=== PATIENT | male | born 1940 | race Caucasian/White ===

== ENCOUNTER 2017-12-19 09:06 | Outpatient (RCR) | payer MEDICARE, OTHER, SELFPAY ==
[2017-12-19 10:37] LABS: International Normalized Ratio 2.5; Prothrombin Time (Protime)PT. 27.1 SECONDS (11.7-14.9)
[2017-12-19 10:42] LABS: AST(SGOT) 22 U/L (15-37); Alanine Aminotransfer ALT/SGPT 22 U/L (16-61); Albumin, Serum 3.5 g/dL (3.2-5.0); Alkaline Phosphatase 68 U/L (45-117); Bilirubin, Direct 0.19 mg/dL (0.00-0.30); Cholesterol 125 mg/dL (200); Globulin 3.5 g/dL (2.2-4.2); High Density Lipoprotein 37 mg/dL; Triglycerides 150 mg/dL; Very Low Density Lipoprotein 30 mg/dL (5-40)
== END 2017-12-19 09:30 | disposition home or self-care (01) ==
LOC: MTLAB 09:06
PROVIDERS: Internal Medicine Cardiovascular Disease; Family Provider Family Medicine; PCP Family Medicine; Visit Provider Family Medicine
DX: I48.91 Unspecified atrial fibrillation (principal); E78.5 Hyperlipidemia, unspecified; Z79.899 Other long term (current) drug therapy
CPT/HCPCS: 36415; 80061; 80076; 85610

== ENCOUNTER 2018-01-31 11:21 | Outpatient (RCR) | payer MEDICARE, OTHER, SELFPAY ==
[2018-01-31 12:50] LABS: International Normalized Ratio 2.3; Prothrombin Time (Protime)PT. 25.2 SECONDS (11.7-14.9)
== END 2018-01-31 12:00 | disposition home or self-care (01) ==
LOC: MTLAB 11:21
PROVIDERS: Family Provider Family Medicine; PCP Family Medicine; Visit Provider Family Medicine
DX: I48.91 Unspecified atrial fibrillation (principal); E78.5 Hyperlipidemia, unspecified; Z79.899 Other long term (current) drug therapy
CPT/HCPCS: 36415; 85610

== ENCOUNTER 2018-03-18 12:52 | Outpatient (RCR) | payer MEDICARE, OTHER, SELFPAY ==
[2018-03-18 14:07] LABS: International Normalized Ratio 2.5; Prothrombin Time (Protime)PT. 26.9 SECONDS (11.7-14.9)
== END 2018-03-18 14:00 ==
LOC: MTLAB 12:52
PROVIDERS: Family Provider Family Medicine; PCP Family Medicine; Visit Provider Family Medicine
DX: I48.91 Unspecified atrial fibrillation (principal)
CPT/HCPCS: 36415; 85610

== ENCOUNTER 2018-04-25 11:08 | Outpatient (RCR) | payer MEDICARE, OTHER, SELFPAY ==
[2018-04-25 12:21] LABS: International Normalized Ratio 2.6
== END 2018-04-25 13:00 | disposition home or self-care (01) ==
LOC: MTLAB 11:08
PROVIDERS: Family Provider Family Medicine; PCP Family Medicine; Visit Provider Family Medicine
DX: I48.91 Unspecified atrial fibrillation (principal)
CPT/HCPCS: 36415; 85610

== ENCOUNTER 2018-05-16 10:23 | Outpatient (RCR) | payer MEDICARE, OTHER, SELFPAY ==
[2018-05-16 12:32] LABS: International Normalized Ratio 2.8; Prothrombin Time (Protime)PT. 29.7 SECONDS (11.7-14.9)
== END 2018-05-16 12:00 | disposition home or self-care (01) ==
LOC: MTLAB 10:23
PROVIDERS: Family Provider Family Medicine; PCP Family Medicine; Visit Provider Family Medicine
DX: I48.91 Unspecified atrial fibrillation (principal)
CPT/HCPCS: 36415; 85610

== ENCOUNTER 2018-06-12 08:26 | Outpatient (RCR) | payer MEDICARE, OTHER, SELFPAY ==
[2018-06-12 10:11] LABS: International Normalized Ratio 2.2; Prothrombin Time (Protime)PT. 24.9 SECONDS (11.7-14.9)
[2018-06-12 10:27] LABS: AST(SGOT) 28 U/L (15-37); Alanine Aminotransfer ALT/SGPT 26 U/L (16-61); Albumin, Serum 3.8 g/dL (3.2-5.0); Alkaline Phosphatase 77 U/L (45-117); Bilirubin, Direct 0.29 mg/dL (0.00-0.30); Cholesterol 132 mg/dL (200); Globulin 3.9 g/dL (2.2-4.2); High Density Lipoprotein 35 mg/dL; Protein, Total 7.7 g/dL (6.4-8.2); Triglycerides 198 mg/dL; Very Low Density Lipoprotein 40 mg/dL (5-40)
== END 2018-06-12 10:00 | disposition home or self-care (01) ==
LOC: MTLAB 08:26
PROVIDERS: Internal Medicine Cardiovascular Disease; Family Provider Family Medicine; PCP Family Medicine; Referring Provider Family Medicine; Visit Provider Family Medicine
DX: I48.91 Unspecified atrial fibrillation (principal); E78.5 Hyperlipidemia, unspecified
CPT/HCPCS: 36415; 80061; 80076; 85610

== ENCOUNTER → 2018-06-14 11:11 | Outpatient (CLI) | payer MEDICARE, OTHER, SELFPAY ==
--- NOTE | 2018-06-14 11:17 | RAD_ITS ---
STUDY: X-RAY CHEST REASON FOR EXAM: Male, 78 years old. PPM TECHNIQUE: Frontal and lateral views COMPARISON: None. FINDINGS: There is a dual lead left-sided pacemaker. The lungs are expanded. Mild basilar atelectasis. Normal size heart. Normal mediastinum and [place]. Normal visualized pulmonary arteries. Normal visualized aortic arch and descending thoracic aorta. Mild degenerative changes of the thoracic spine. Normal visualized ribs, clavicles, and shoulders. There is no demonstrated abnormality of the visualized soft tissue structures of the upper abdomen. RAD/Chest PA and Lateral IMPRESSION: Mild basilar atelectasis. Electronically Signed: Giovanni José DO at 9:38 EDT Tel [phone], Service support ,
[2018-06-14 11:41] LABS: Bacteria 0 SEEN /hpf (None Seen); Mucous, Urine 0 SEEN /hpf (<or=2+); Squamous Epithelial Cells - UA 0 SEEN /hpf (0-5); White Blood Cells 0 SEEN /hpf (0-5)
[2018-06-14 12:36] LABS: Hematocrit 43.7 % (40-54); Hemoglobin 14.9 g/dl (13.0-16.5); Mean Corp Hgb Conc 34.1 g/gl (32-36); Mean Corpuscular Hgb 33.9 pg (27.0-32.0); Mean Corpuscular Volume 99.5 fL (80-94); Mean Platelet Vol. 10.7 fl (6.2-12.0); Platelet Count 125 K/mm3 (150-450); RBC Distribution Width CV 12.9 % (11.6-14.6); Red Blood Count 4.39 M/mm3 (4.6-6.2); White Blood Count 6.2 K/mm3 (4.4-11.0)
[2018-06-14 12:37] LABS: Scan Indicated on CBC? Y/N NO
[2018-06-14 12:42] LABS: Color, Urine Yellow (Yellow); Glucose, Dipstick Normal (Normal); Ketone-Dipstick 5 mg/dl (Negative); Leukocyte Esterase-Dipstick 25 /ul (Negative); Nitrite-Dipstick Negative (Negative); Occult Blood-Urine 150 /ul (Negative); Protein-Dipstick 15 mg/dl (Negative); Urine Bilirubin Dipstick Negative (Negative); Urine Clarity Clear (Clear); Urine Urobilinogen 1 mg/dl (Normal)
[2018-06-14 12:43] LABS: International Normalized Ratio 2.4; Prothrombin Time (Protime)PT. 25.9 SECONDS (11.7-14.9)
[2018-06-14 12:48] LABS: Red Blood Cells-Urine 5-10 SEEN /hpf (0-5)
[2018-06-14 13:02] LABS: Anion Gap 10 (5-15); BUN 27 mg/dL (7-18); BUN/Creat Ratio 20.9 RATIO (10-20); Calcium,Total 8.5 mg/dL (8.5-10.1); Chloride 109 mmol/L (98-107); Creatinine, Serum 1.29 mg/dL (0.70-1.30); EST Glomerular Filtration Rate 57 mL/min (>60); Est Glom Filt Rate - Afr Amer 69 mL/min (>60); Glucose 90 mg/dL (74-106); Potassium 3.9 mmol/L (3.5-5.1); Sodium Level 145 mmol/L (136-145)
== END ==
PROVIDERS: Family Provider Family Medicine; PCP Family Medicine; Referring Provider Internal Medicine Cardiovascular Disease; Visit Provider Internal Medicine Cardiovascular Disease
DX: I48.2 Chronic atrial fibrillation (principal); I25.10 Atherosclerotic heart disease of native coronary artery without angina pectoris; I44.2 Atrioventricular block, complete; I49.5 Sick sinus syndrome; I43 Cardiomyopathy in diseases classified elsewhere; Z95.0 Presence of cardiac pacemaker
CPT/HCPCS: 36415; 71046; 80048; 81001; 85027; 85610

== ENCOUNTER 2018-06-24 10:39 | Day surgery (SDC) | payer MEDICARE, OTHER, SELFPAY ==
[2018-06-21 12:25] VITALS: BMI 30.2
[2018-06-24 10:56] LABS: Prothrombin Time Fingerstick 15.2 SEC (11.9-14.4)
--- NOTE | 2018-06-24 13:39 | CL.IE_ITS ---
Patient: MAIA GILES Study Date: 06/24/2018 Performing: Luciano Roach MD : 1940 Age: 78 Gender: male PROCEDURES PERFORMED IN68-GDOSYWH REMOVAL+REPLACEMENT PACER-DUAL LEAD INDICATIONS End-of-life replacement indicator Sinoatrial node dysfunction/Sick sinus syndrome Atrial fibrillation and complete heart block PROCEDURE DETAILS The patient was brought to the Catheterization Lab in the postabsorptive nonsedated state. Informed consent was obtained prior to the procedure. Local anesthetic was given subcutaneously to the left up per chest area with Lidocaine 2%. Incision was made to the left upper chest. PPM generator was remove d. PPM generator was then interrogated by the cad programmer. Device pocket was irrigated with antibiotic . PPM generator was attached to the lead(s) and inserted into the pocket. Subcutaneous closure was co mpleted with 3-0 Vicryl. Skin closure was completed with 4-0 Vicryl. Steri-strips applied to Lt chest area. The patient tolerated the procedure well. Estimated Blood Loss: 10 ml's IMPLANTED / EX-PLANTED DEVICES IMPLANTED DEVICE(S): PPM Generator - Auto Parker: [email or web address], Model # [email or web address] MRI L111 , Serial # [id number] DEVICE PARAMETERS DEVICE PARAMETERS: Mode- VVIR Lower rate- 70 Upper rate- 120 CONCLUSIONS / RECOMMENDATIONS Device Conclusions: Successful implantation of a dual chamber pacemaker battery change and replacemen t Device Recommendations: Follow up with Primary Care Physician PROCEDURE MEDICATIONS Fentanyl 50 mcg IV Versed 1 mg IV Oxygen: 2 L/min via nasal cannula Antibiotic given in appropriate timeframe. Ancef 2 Gm IV @ 06/24/2018 12:24:54 Signed By Luciano Roach MD On 06/24/2018 13:38:36 Luciano Roach MD
== END 2018-06-24 14:55 | disposition home or self-care (01) ==
LOC: CLSP 10:40
PROVIDERS: Family Provider Family Medicine; PCP Family Medicine; Referring Provider Internal Medicine Cardiovascular Disease; Visit Provider Internal Medicine Cardiovascular Disease
DX: I49.5 Sick sinus syndrome (principal); Z00.6 Encounter for examination for normal comparison and control in clinical research program; I48.2 Chronic atrial fibrillation; I44.2 Atrioventricular block, complete; I25.10 Atherosclerotic heart disease of native coronary artery without angina pectoris; I34.1 Nonrheumatic mitral (valve) prolapse; I42.9 Cardiomyopathy, unspecified; E78.00 Pure hypercholesterolemia, unspecified; N40.0 Benign prostatic hyperplasia without lower urinary tract symptoms; E66.9 Obesity, unspecified; Z79.01 Long term (current) use of anticoagulants; Z79.899 Other long term (current) drug therapy; Z95.0 Presence of cardiac pacemaker; Z87.891 Personal history of nicotine dependence
CPT/HCPCS: 33228; 36416; 85610; 99152; 99153; J7040; J7050

== ENCOUNTER 2018-07-23 10:47 | Outpatient (RCR) | payer MEDICARE, OTHER, SELFPAY ==
[2018-07-23 12:08] LABS: International Normalized Ratio 2.1
== END 2018-07-23 11:00 | disposition home or self-care (01) ==
LOC: MTLAB 10:47
PROVIDERS: Family Provider Family Medicine; PCP Family Medicine; Referring Provider Family Medicine; Visit Provider Family Medicine
DX: I48.91 Unspecified atrial fibrillation (principal); E78.5 Hyperlipidemia, unspecified
CPT/HCPCS: 36415; 85610

== ENCOUNTER 2018-12-10 10:49 | Outpatient (RCR) | payer MEDICARE, OTHER, SELFPAY ==
[2018-06-21 12:25] VITALS: BMI 30.2
[2018-12-10 12:16] LABS: International Normalized Ratio 2.4; Prothrombin Time (Protime)PT. 26.1 SECONDS (11.7-14.9)
== END 2019-01-07 16:00 | disposition home or self-care (01) ==
LOC: MTLAB 10:49
PROVIDERS: Family Provider Family Medicine; PCP Family Medicine; Referring Provider Family Medicine; Visit Provider Family Medicine
DX: I48.91 Unspecified atrial fibrillation (principal)
CPT/HCPCS: 36415; 85610

== ENCOUNTER → 2018-12-26 | Outpatient (CLI) | payer MEDICARE, OTHER, SELFPAY ==
[2018-12-26 12:36] LABS: AST(SGOT) 23 U/L (15-37); Alanine Aminotransfer ALT/SGPT 29 U/L (16-61); Albumin, Serum 3.5 g/dL (3.2-5.0); Alkaline Phosphatase 76 U/L (45-117); Bilirubin, Direct 0.22 mg/dL (0.00-0.30); Cholesterol 131 mg/dL (200); Globulin 3.6 g/dL (2.2-4.2); High Density Lipoprotein 32 mg/dL; Protein, Total 7.1 g/dL (6.4-8.2); Triglycerides 185 mg/dL; Very Low Density Lipoprotein 37 mg/dL (5-40)
== END | disposition home or self-care (01) ==
LOC: MTLAB 10:12
PROVIDERS: Family Provider Family Medicine; PCP Family Medicine; Referring Provider Internal Medicine Cardiovascular Disease; Visit Provider Internal Medicine Cardiovascular Disease
DX: I25.10 Atherosclerotic heart disease of native coronary artery without angina pectoris (principal); Z86.39 Personal history of other endocrine, nutritional and metabolic disease
CPT/HCPCS: 36415; 80061; 80076

== ENCOUNTER 2019-02-18 10:33 | Outpatient (RCR) | payer MEDICARE, OTHER, SELFPAY ==
[2018-12-31 10:33] VITALS: BMI 29.8
[2019-02-18 12:21] LABS: International Normalized Ratio 1.6; Prothrombin Time (Protime)PT. 18.7 SECONDS (11.7-14.9)
== END 2019-02-18 11:00 | disposition home or self-care (01) ==
LOC: MTLAB 10:33
PROVIDERS: Family Provider Family Medicine; PCP Family Medicine; Referring Provider Family Medicine; Visit Provider Family Medicine
DX: I48.91 Unspecified atrial fibrillation (principal)
CPT/HCPCS: 36415; 85610

== ENCOUNTER 2019-03-21 13:09 | Outpatient (RCR) | payer MEDICARE, OTHER, SELFPAY ==
[2018-12-31 10:33] VITALS: BMI 29.8
[2019-03-21 14:28] LABS: Prothrombin Time (Protime)PT. 22.8 SECONDS (11.7-14.9)
== END 2019-03-21 13:30 | disposition home or self-care (01) ==
LOC: MTLAB 13:09
PROVIDERS: Family Provider Family Medicine; PCP Family Medicine; Referring Provider Family Medicine; Visit Provider Family Medicine
DX: I48.91 Unspecified atrial fibrillation (principal)
CPT/HCPCS: 36415; 85610

== ENCOUNTER 2019-04-17 11:44 | Outpatient (RCR) | payer MEDICARE, OTHER, SELFPAY ==
[2018-12-31 10:33] VITALS: BMI 29.8
[2019-04-17 13:53] LABS: International Normalized Ratio 2.4; Prothrombin Time (Protime)PT. 26.1 SECONDS (11.7-14.9)
== END 2019-04-17 12:44 | disposition home or self-care (01) ==
LOC: MTLAB 11:44
PROVIDERS: Family Provider Family Medicine; PCP Family Medicine; Referring Provider Family Medicine; Visit Provider Family Medicine
DX: I48.91 Unspecified atrial fibrillation (principal)
CPT/HCPCS: 36415; 85610

== ENCOUNTER → 2019-05-22 11:37 | Outpatient (CLI) | payer MEDICARE, OTHER, SELFPAY ==
[2018-12-31 10:33] VITALS: BMI 29.8
[2019-05-22 14:50] LABS: International Normalized Ratio 1.9; Prothrombin Time (Protime)PT. 21.5 SECONDS (11.7-14.9)
== END ==
PROVIDERS: Family Provider Family Medicine; PCP Family Medicine; Referring Provider Family Medicine; Visit Provider Family Medicine
DX: I48.91 Unspecified atrial fibrillation (principal)
CPT/HCPCS: 36415; 85610

== ENCOUNTER 2019-06-17 08:58 | Outpatient (RCR) | payer MEDICARE, OTHER, SELFPAY ==
[2018-12-31 10:33] VITALS: BMI 29.8
[2019-06-17 10:18] LABS: International Normalized Ratio 2.1; Prothrombin Time (Protime)PT. 23.7 SECONDS (11.7-14.9)
[2019-06-17 10:24] LABS: AST(SGOT) 27 U/L (15-37); Alanine Aminotransfer ALT/SGPT 22 U/L (16-61); Albumin, Serum 3.6 g/dL (3.2-5.0); Alkaline Phosphatase 74 U/L (45-117); Bilirubin, Direct 0.36 mg/dL (0.00-0.30); Cholesterol 133 mg/dL (200); Globulin 3.7 g/dL (2.2-4.2); High Density Lipoprotein 37 mg/dL; Protein, Total 7.3 g/dL (6.4-8.2); Triglycerides 108 mg/dL; Very Low Density Lipoprotein 22 mg/dL (5-40)
== END 2019-06-17 18:00 | disposition home or self-care (01) ==
LOC: MTLAB 08:58
PROVIDERS: Internal Medicine Cardiovascular Disease; Family Provider Family Medicine; PCP Family Medicine; Referring Provider Family Medicine; Visit Provider Family Medicine
DX: I48.91 Unspecified atrial fibrillation (principal); E78.00 Pure hypercholesterolemia, unspecified
CPT/HCPCS: 36415; 80061; 80076; 85610

== ENCOUNTER → 2019-07-03 15:48 | Outpatient (CLI) | payer MEDICARE, OTHER, SELFPAY ==
[2019-07-03 13:35] VITALS: BMI 29.5
[2019-07-03 17:52] LABS: Anion Gap 5 (5-15); BUN 24 mg/dL (7-18); BUN/Creat Ratio 20.5 RATIO (10-20); Calcium,Total 8.7 mg/dL (8.5-10.1); Chloride 109 mmol/L (98-107); Creatinine, Serum 1.17 mg/dL (0.70-1.30); EST Glomerular Filtration Rate 64 mL/min (>60); Est Glom Filt Rate - Afr Amer 77 mL/min (>60); Glucose 71 mg/dL (74-106); Potassium 4.3 mmol/L (3.5-5.1); Sodium Level 143 mmol/L (136-145)
== END ==
PROVIDERS: Family Provider Family Medicine; PCP Family Medicine; Referring Provider Internal Medicine Cardiovascular Disease; Visit Provider Internal Medicine Cardiovascular Disease
DX: I51.9 Heart disease, unspecified (principal)
CPT/HCPCS: 36415; 80048

== ENCOUNTER → 2019-07-08 | Outpatient (CLI) | payer MEDICARE, OTHER, SELFPAY ==
[2019-07-03 13:35] VITALS: BMI 29.5
[2019-07-08 12:36] LABS: BNP,B-Type NATRIURETIC PEPTIDE 96.5 pg/mL (0-100)
== END | disposition home or self-care (01) ==
LOC: MTLAB 10:41
PROVIDERS: Family Provider Family Medicine; PCP Family Medicine; Referring Provider Internal Medicine Cardiovascular Disease; Visit Provider Internal Medicine Cardiovascular Disease
DX: E78.00 Pure hypercholesterolemia, unspecified (principal); I25.10 Atherosclerotic heart disease of native coronary artery without angina pectoris; I34.1 Nonrheumatic mitral (valve) prolapse; I42.8 Other cardiomyopathies; I44.2 Atrioventricular block, complete; I49.5 Sick sinus syndrome; I51.9 Heart disease, unspecified; Z95.0 Presence of cardiac pacemaker
CPT/HCPCS: 36415; 83880

== ENCOUNTER → 2019-07-16 10:45 | Outpatient (CLI) | payer MEDICARE, OTHER, SELFPAY ==
[2019-07-03 13:35] VITALS: BMI 29.5
--- NOTE | 2019-07-16 10:48 | ECHOD_ITS ---
Reason For Study: DYSPNEA/SOB Left Ventricle Normal LV size. The estimated ejection fraction is 50 %. Left ventricular systolic function is lower limits of normal. No regional wall motion abnormalities noted. Right Ventricle Moderately dilated right ventricle. ICD or pacer leads identified within the right ventricle. Mild global right ventricular systolic dysfunction. Atria The left atrium is moderately enlarged. The right atrium is moderately enlarged. Mitral Valve Normal mitral valve. Mild (1+) eccentric mitral valve insufficiency. Tricuspid Valve Normal tricuspid valve. Mild to moderate (1-2+) tricuspid valve insufficiency. Pulmonary artery systolic pressure is 38 mmHg. Aortic Valve Trisinus/trileaflet aortic valve. Mild focal aortic valve calcification. Mild (1+) eccentric aortic valve insufficiency. Pulmonic Valve Normal pulmonic valve. Great Vessels Normal aortic root. The pulmonary artery is normal size. Normal inferior vena cava. Pericardium/Pleural No pericardial effusion. MMode/2D Measurements & Calculations LVIDd: 4.7 cm IVSd: 1.1 cm Ao root diam: 3.4 cm LVIDs: 3.6 cm LVPWd: 0.91 cm RVDd: 4.5 cm FS: 23.3 % LAV(MOD-bp): 96.7 ml LVAd ap4: 23.9 cm2 SV(MOD-sp4): 31.5 ml LAV(MOD-bp) Indexed: 44.1 ml/m2 EDV(MOD-sp4): 69.8 ml LAV(MOD-sp2): 106.9 ml EDV(sp4-el): 72.1 ml LAV(MOD-sp4): 87.3 ml LVAs ap4: 17.0 cm2 ESV(MOD-sp4): 38.3 ml ESV(sp4-el): 39.8 ml EF(MOD-sp4): 45.2 % EF(sp4-el): 44.8 % SV(sp4-el): 32.3 ml LA dimension(2D): 4.7 cm LA A4 area: 27.3 cm2 RA A4 area: 26.6 cm2 Doppler Measurements & Calculations MV E max ney: 72.8 cm/sec Ao V2 max: 169.4 cm/sec AI max ney: 388.6 cm/sec Ao max P.5 mmHg AI max P.4 mmHg AI dec slope: 208.4 cm/sec2 AI P1/2t: 546.0 msec LV V1 max: 94.0 cm/sec PA V2 max: 111.7 cm/sec TR max ney: 290.9 cm/sec LV V1 max P.5 mmHg TR max P.8 mmHg Interpretation Summary Normal LV size. The estimated ejection fraction is 50 %. Left ventricular systolic function is lower limits of normal. The left atrium is moderately enlarged. The right atrium is moderately enlarged. Mild to moderate (1-2+) tricuspid valve insufficiency. Ordering Physician: Luciano Roach Referring Physician: COOKIE RICH Performed By: Brenna Francis RDCS
== END ==
PROVIDERS: Family Provider Family Medicine; PCP Family Medicine; Referring Provider Internal Medicine Cardiovascular Disease; Visit Provider Internal Medicine Cardiovascular Disease
DX: I50.9 Heart failure, unspecified (principal); R06.00 Dyspnea, unspecified; R06.02 Shortness of breath
CPT/HCPCS: 93306

== ENCOUNTER 2019-08-19 14:31 | Outpatient (RCR) | payer MEDICARE, OTHER, SELFPAY ==
[2019-07-03 13:35] VITALS: BMI 29.5
[2019-08-19 17:58] LABS: International Normalized Ratio 2.4; Prothrombin Time (Protime)PT. 25.8 SECONDS (11.7-14.9)
== END 2019-08-19 18:00 | disposition home or self-care (01) ==
LOC: MTLAB 14:31
PROVIDERS: Family Provider Family Medicine; PCP Family Medicine; Referring Provider Family Medicine; Visit Provider Family Medicine
DX: I48.91 Unspecified atrial fibrillation (principal)
CPT/HCPCS: 36415; 85610

== ENCOUNTER 2019-09-19 13:19 | Outpatient (RCR) | payer MEDICARE, OTHER, SELFPAY ==
[2019-07-03 13:35] VITALS: BMI 29.5
[2019-09-19 14:22] LABS: International Normalized Ratio 2.4; Prothrombin Time (Protime)PT. 26.3 SECONDS (11.7-14.9)
== END 2019-09-19 18:00 | disposition home or self-care (01) ==
LOC: MTLAB 13:19
PROVIDERS: Family Provider Family Medicine; PCP Family Medicine; Referring Provider Family Medicine; Visit Provider Family Medicine
DX: I48.91 Unspecified atrial fibrillation (principal)
CPT/HCPCS: 36415; 85610

== ENCOUNTER 2019-11-03 09:16 | Outpatient (RCR) | payer MEDICARE, OTHER, SELFPAY ==
[2019-07-03 13:35] VITALS: BMI 29.5
[2019-10-20 16:13] LABS: International Normalized Ratio 1.9; Prothrombin Time (Protime)PT. 21.4 SECONDS (11.7-14.9)
[2019-11-03 10:43] LABS: International Normalized Ratio 2.2; Prothrombin Time (Protime)PT. 24.4 SECONDS (11.7-14.9)
== END 2019-11-03 18:00 | disposition home or self-care (01) ==
LOC: MTLAB 09:16
PROVIDERS: Family Provider Family Medicine; PCP Family Medicine; Referring Provider Family Medicine; Visit Provider Family Medicine
DX: I48.91 Unspecified atrial fibrillation (principal)
CPT/HCPCS: 36415; 85610

== ENCOUNTER 2019-11-25 14:15 | Outpatient (RCR) | payer MEDICARE, OTHER, SELFPAY ==
[2019-07-03 13:35] VITALS: BMI 29.5
[2019-11-25 15:18] LABS: International Normalized Ratio 1.9; Prothrombin Time (Protime)PT. 21.9 SECONDS (11.7-14.9)
== END 2019-11-25 18:00 | disposition home or self-care (01) ==
LOC: MTLAB 14:15
PROVIDERS: Family Provider Family Medicine; PCP Family Medicine; Referring Provider Family Medicine; Visit Provider Family Medicine
DX: I48.91 Unspecified atrial fibrillation (principal)
CPT/HCPCS: 36415; 85610

== ENCOUNTER 2019-12-22 08:24 | Outpatient (RCR) | payer MEDICARE, OTHER, SELFPAY ==
[2019-07-03 13:35] VITALS: BMI 29.5
[2019-12-22 10:02] LABS: International Normalized Ratio 2.2; Prothrombin Time (Protime)PT. 23.8 SECONDS (11.7-14.9)
[2019-12-22 10:17] LABS: AST(SGOT) 27 U/L (15-37); Alanine Aminotransfer ALT/SGPT 26 U/L (16-61); Albumin, Serum 3.5 g/dL (3.2-5.0); Alkaline Phosphatase 68 U/L (45-117); Bilirubin, Direct 0.32 mg/dL (0.00-0.30); Cholesterol 150 mg/dL (200); Globulin 3.5 g/dL (2.2-4.2); High Density Lipoprotein 34 mg/dL; Triglycerides 141 mg/dL; Very Low Density Lipoprotein 28 mg/dL (5-40)
== END 2020-01-08 18:00 | disposition home or self-care (01) ==
LOC: MTLAB 08:24
PROVIDERS: Internal Medicine Cardiovascular Disease; Family Provider Family Medicine; PCP Family Medicine; Referring Provider Family Medicine; Visit Provider Family Medicine
DX: E78.00 Pure hypercholesterolemia, unspecified (principal); Z86.39 Personal history of other endocrine, nutritional and metabolic disease; Z79.01 Long term (current) use of anticoagulants
CPT/HCPCS: 36415; 80061; 80076; 85610

== ENCOUNTER 2020-01-21 07:13 | Outpatient (RCR) | payer MEDICARE, OTHER, SELFPAY ==
[2020-01-05 11:41] VITALS: BMI 29.5
[2020-01-21 10:07] LABS: International Normalized Ratio 1.9; Prothrombin Time (Protime)PT. 21.2 SECONDS (11.7-14.9)
== END 2020-01-21 18:00 | disposition home or self-care (01) ==
LOC: MTLAB 07:13
PROVIDERS: Family Provider Family Medicine; PCP Family Medicine; Referring Provider Family Medicine; Visit Provider Family Medicine
DX: Z79.01 Long term (current) use of anticoagulants (principal)
CPT/HCPCS: 36415; 85610

== ENCOUNTER 2020-03-01 10:35 | Outpatient (RCR) | payer MEDICARE, OTHER, SELFPAY ==
[2020-01-05 11:41] VITALS: BMI 29.5
[2020-02-11 15:48] LABS: International Normalized Ratio 1.9
[2020-03-01 12:35] LABS: International Normalized Ratio 2.6
== END 2020-03-01 18:00 | disposition home or self-care (01) ==
LOC: MTLAB 10:35
PROVIDERS: Family Provider Family Medicine; PCP Family Medicine; Referring Provider Family Medicine; Visit Provider Family Medicine
DX: Z79.01 Long term (current) use of anticoagulants (principal)
CPT/HCPCS: 36415; 85610

== ENCOUNTER 2020-03-19 11:09 | Outpatient (RCR) | payer MEDICARE, OTHER, SELFPAY ==
[2020-01-05 11:41] VITALS: BMI 29.5
[2020-03-19 15:31] LABS: International Normalized Ratio 2.6; Prothrombin Time (Protime)PT. 27.4 SECONDS (11.7-14.9)
== END 2020-03-19 18:00 | disposition home or self-care (01) ==
LOC: MTLAB 11:09
PROVIDERS: Family Provider Family Medicine; PCP Family Medicine; Referring Provider Family Medicine; Visit Provider Family Medicine
DX: Z79.01 Long term (current) use of anticoagulants (principal)
CPT/HCPCS: 85610

== ENCOUNTER 2020-04-20 11:03 | Outpatient (RCR) | payer MEDICARE, OTHER, SELFPAY ==
[2020-01-05 11:41] VITALS: BMI 29.5
[2020-04-20 12:39] LABS: International Normalized Ratio 2.6; Prothrombin Time (Protime)PT. 27.6 SECONDS (11.7-14.9)
== END 2020-05-10 18:00 | disposition home or self-care (01) ==
LOC: MTLAB 11:03
PROVIDERS: Family Provider Family Medicine; PCP Family Medicine; Referring Provider Family Medicine; Visit Provider Family Medicine
DX: Z79.01 Long term (current) use of anticoagulants (principal)
CPT/HCPCS: 36415; 85610

== ENCOUNTER 2020-05-21 11:28 | Outpatient (RCR) | payer MEDICARE, OTHER, SELFPAY ==
[2020-01-05 11:41] VITALS: BMI 29.5
[2020-05-21 15:35] LABS: International Normalized Ratio 2.4; Prothrombin Time (Protime)PT. 25.4 SECONDS (11.7-14.9)
== END 2020-05-21 18:00 | disposition home or self-care (01) ==
LOC: MTLAB 11:28
PROVIDERS: Family Provider Family Medicine; PCP Family Medicine; Referring Provider Family Medicine; Visit Provider Family Medicine
DX: Z79.01 Long term (current) use of anticoagulants (principal)
CPT/HCPCS: 36415; 85610

== ENCOUNTER 2020-06-17 09:39 | Outpatient (RCR) | payer MEDICARE, OTHER, SELFPAY ==
[2020-01-05 11:41] VITALS: BMI 29.5
[2020-06-17 13:07] LABS: International Normalized Ratio 2.2; Prothrombin Time (Protime)PT. 24.2 SECONDS (11.7-14.9)
[2020-06-17 13:19] LABS: AST(SGOT) 26 U/L (15-37); Alanine Aminotransfer ALT/SGPT 31 U/L (16-61); Albumin, Serum 3.6 g/dL (3.2-5.0); Alkaline Phosphatase 76 U/L (45-117); Bilirubin, Direct 0.37 mg/dL (0.00-0.30); Cholesterol 144 mg/dL (200); Globulin 3.9 g/dL (2.2-4.2); High Density Lipoprotein 38 mg/dL; Protein, Total 7.5 g/dL (6.4-8.2); Triglycerides 167 mg/dL; Very Low Density Lipoprotein 33 mg/dL (5-40)
== END 2020-06-17 18:00 | disposition home or self-care (01) ==
LOC: MTLAB 09:39
PROVIDERS: Internal Medicine Cardiovascular Disease; Family Provider Family Medicine; PCP Family Medicine; Referring Provider Family Medicine; Visit Provider Family Medicine
DX: E78.00 Pure hypercholesterolemia, unspecified (principal); Z79.01 Long term (current) use of anticoagulants
CPT/HCPCS: 36415; 80061; 80076; 85610

== ENCOUNTER 2020-07-26 13:39 | Outpatient (RCR) | payer MEDICARE, OTHER, SELFPAY ==
[2020-01-05 11:41] VITALS: BMI 29.5
[2020-07-26 15:49] LABS: International Normalized Ratio 2.3; Prothrombin Time (Protime)PT. 24.6 SECONDS (11.7-14.9)
== END 2020-07-26 18:00 | disposition home or self-care (01) ==
LOC: MTLAB 13:39
PROVIDERS: Family Provider Family Medicine; PCP Family Medicine; Referring Provider Family Medicine; Visit Provider Family Medicine
DX: Z79.01 Long term (current) use of anticoagulants (principal)
CPT/HCPCS: 36415; 85610

== ENCOUNTER 2020-08-18 11:21 | Outpatient (RCR) | payer MEDICARE, OTHER, SELFPAY ==
[2020-08-03 14:46] VITALS: BMI 29.2
[2020-08-18 15:29] LABS: International Normalized Ratio 2.4; Prothrombin Time (Protime)PT. 26.1 SECONDS (11.7-14.9)
== END 2020-08-18 18:00 | disposition home or self-care (01) ==
LOC: MTLAB 11:21
PROVIDERS: Family Provider Family Medicine; PCP Family Medicine; Referring Provider Family Medicine; Visit Provider Family Medicine
DX: Z79.01 Long term (current) use of anticoagulants (principal)
CPT/HCPCS: 36415; 85610

== ENCOUNTER 2020-09-22 09:33 | Outpatient (RCR) | payer MEDICARE, OTHER, SELFPAY ==
[2020-08-03 14:46] VITALS: BMI 29.2
[2020-09-22 12:37] LABS: International Normalized Ratio 2.7
== END 2020-09-22 18:00 | disposition home or self-care (01) ==
LOC: MTLAB 09:33
PROVIDERS: Family Provider Family Medicine; PCP Family Medicine; Referring Provider Family Medicine; Visit Provider Family Medicine
DX: Z79.01 Long term (current) use of anticoagulants (principal)
CPT/HCPCS: 36415; 85610

== ENCOUNTER 2020-10-27 10:16 | Outpatient (RCR) | payer MEDICARE, OTHER, SELFPAY ==
[2020-08-03 14:46] VITALS: BMI 29.2
[2020-10-27 12:54] LABS: International Normalized Ratio 2.3; Prothrombin Time (Protime)PT. 25.2 SECONDS (11.7-14.9)
== END 2020-10-27 18:00 | disposition home or self-care (01) ==
LOC: MTLAB 10:16
PROVIDERS: Family Provider Family Medicine; PCP Family Medicine; Referring Provider Family Medicine; Visit Provider Family Medicine
DX: Z79.01 Long term (current) use of anticoagulants (principal)
CPT/HCPCS: 36415; 85610

== ENCOUNTER 2020-11-24 09:16 | Outpatient (RCR) | payer MEDICARE, OTHER, SELFPAY ==
[2020-08-03 14:46] VITALS: BMI 29.2
[2020-11-24 12:36] LABS: International Normalized Ratio 2.5; Prothrombin Time (Protime)PT. 26.4 SECONDS (11.7-14.9)
== END 2020-11-24 18:00 | disposition home or self-care (01) ==
LOC: MTLAB 09:16
PROVIDERS: Family Provider Family Medicine; PCP Family Medicine; Referring Provider Family Medicine; Visit Provider Family Medicine
DX: Z79.01 Long term (current) use of anticoagulants (principal)
CPT/HCPCS: 36415; 85610

== ENCOUNTER 2020-12-22 08:37 | Outpatient (RCR) | payer MEDICARE, OTHER, SELFPAY ==
[2020-08-03 14:46] VITALS: BMI 29.2
[2020-12-22 10:37] LABS: International Normalized Ratio 2.5; Prothrombin Time (Protime)PT. 26.1 SECONDS (11.7-14.9)
[2020-12-22 10:48] LABS: AST(SGOT) 22 U/L (15-37); Alanine Aminotransfer ALT/SGPT 27 U/L (16-61); Albumin, Serum 3.6 g/dL (3.2-5.0); Alkaline Phosphatase 77 U/L (45-117); Bilirubin, Direct 0.36 mg/dL (0.00-0.30); Cholesterol 142 mg/dL (200); Globulin 3.6 g/dL (2.2-4.2); High Density Lipoprotein 36 mg/dL; Protein, Total 7.2 g/dL (6.4-8.2); Triglycerides 146 mg/dL; Very Low Density Lipoprotein 29 mg/dL (5-40)
== END 2020-12-22 18:00 | disposition home or self-care (01) ==
LOC: MTLAB 08:37
PROVIDERS: Nurse Practitioner Family; Family Provider Family Medicine; PCP Family Medicine; Referring Provider Family Medicine; Visit Provider Family Medicine
DX: Z79.01 Long term (current) use of anticoagulants (principal); E78.5 Hyperlipidemia, unspecified
CPT/HCPCS: 36415; 80061; 80076; 85610

== ENCOUNTER 2021-01-19 08:50 | Outpatient (RCR) | payer MEDICARE, OTHER, SELFPAY ==
[2020-08-03 14:46] VITALS: BMI 29.2
[2021-01-19 10:16] LABS: International Normalized Ratio 2.7; Prothrombin Time (Protime)PT. 28.1 SECONDS (11.7-14.9)
== END 2021-01-28 18:00 | disposition home or self-care (01) ==
LOC: MTLAB 08:50
PROVIDERS: Family Provider Family Medicine; PCP Family Medicine; Referring Provider Family Medicine; Visit Provider Family Medicine
DX: I48.91 Unspecified atrial fibrillation (principal)
CPT/HCPCS: 36415; 85610

== ENCOUNTER 2021-03-01 12:52 | Outpatient (RCR) | payer MEDICARE, OTHER, SELFPAY ==
[2020-08-03 14:46] VITALS: BMI 29.2
[2021-02-10 15:22] VITALS: BMI 28.8
[2021-03-01 14:56] LABS: International Normalized Ratio 2.5; Prothrombin Time (Protime)PT. 26.2 SECONDS (11.7-14.9)
== END 2021-03-01 18:00 | disposition home or self-care (01) ==
LOC: MTLAB 12:52
PROVIDERS: Family Provider Family Medicine; PCP Family Medicine; Referring Provider Family Medicine; Visit Provider Family Medicine
DX: I48.91 Unspecified atrial fibrillation (principal)
CPT/HCPCS: 36415; 85610

== ENCOUNTER 2021-03-16 08:42 | Outpatient (RCR) | payer MEDICARE, OTHER, SELFPAY ==
[2021-02-10 15:22] VITALS: BMI 28.8
[2021-03-16 10:24] LABS: International Normalized Ratio 2.6; Prothrombin Time (Protime)PT. 27.1 SECONDS (11.7-14.9)
== END 2021-03-16 18:00 | disposition home or self-care (01) ==
LOC: MTLAB 08:42
PROVIDERS: Family Provider Family Medicine; PCP Family Medicine; Referring Provider Family Medicine; Visit Provider Family Medicine
DX: I48.91 Unspecified atrial fibrillation (principal)
CPT/HCPCS: 36415; 85610

== ENCOUNTER 2021-04-13 08:49 | Outpatient (RCR) | payer MEDICARE, OTHER, SELFPAY ==
[2021-02-10 15:22] VITALS: BMI 28.8
[2021-04-13 10:54] LABS: International Normalized Ratio 2.6; Prothrombin Time (Protime)PT. 27.3 SECONDS (11.7-14.9)
== END 2021-04-13 18:00 | disposition home or self-care (01) ==
LOC: MTLAB 08:49
PROVIDERS: Family Provider Family Medicine; PCP Family Medicine; Referring Provider Family Medicine; Visit Provider Family Medicine
DX: I48.91 Unspecified atrial fibrillation (principal)
CPT/HCPCS: 36415; 85610

== ENCOUNTER → 2021-04-22 16:47 | Outpatient (CLI) | payer MEDICARE, OTHER, SELFPAY ==
[2021-02-10 15:22] VITALS: BMI 28.8
--- NOTE | 2021-04-22 16:50 | RAD_ITS ---
STUDY: X-RAY - CERVICAL SPINE REASON FOR EXAM: Male, 81 years old. NECK ACHE/PAIN TECHNIQUE: 5 view(s) of the cervical spine were obtained. COMPARISON: None FINDINGS: Normal anterior atlantoaxial articulation. Normal odontoid process. Normal cervical lordosis. There is multi-level endplate spondylosis. There is multi-level degenerative disc disease with multilevel disc space narrowing. There is multi-level osseous foraminal stenosis. The soft tissue structures are unremarkable. RAD/Cerv Spine 4 or 5 Views IMPRESSION: Moderate degenerative disc disease. MRI would be useful. Electronically Signed: Finesse Santos MD at 7:38 EDT Tel , Service support ,
== END ==
PROVIDERS: PCP Family Medicine; Referring Provider Family Medicine; Visit Provider Family Medicine
DX: M54.2 Cervicalgia (principal)
CPT/HCPCS: 72050

== ENCOUNTER → 2021-05-04 13:29 | Outpatient (CLI) | payer MEDICARE, OTHER, SELFPAY ==
--- NOTE | 2021-05-04 13:34 | CT_ITS ---
STUDY: CT CERVICAL SPINE WITHOUT CONTRAST REASON FOR EXAM: Male, 81 years old. DDD RADIATION DOSAGE (If Supplied By Facility): CTDIvol = ( 29.90 ) mGy, DLP = ( 524.54 ) mGycm TECHNIQUE: High resolution transaxial imaging was performed without contrast material. Sagittal and coronal images were reconstructed. Individualized dose optimization techniques were used for this CT. COMPARISON: None FINDINGS: Normal craniovertebral junction. Normal anterior atlantoaxial articulation. 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 Normal cervical lordosis. Normal vertebral bodies and posterior osseous elements. C2-3: Mild bilateral facet hypertrophy produces mild bilateral neural foraminal stenosis. No central spinal stenosis. C3-4: Moderate left facet hypertrophy. 2 mm of anterolisthesis of C3 on C4 with a mild broad disc osteophyte complex and bilateral degenerative hypertrophy produces mild spinal stenosis, mild right neural foraminal stenosis and moderate left neural foraminal stenosis. C4-5: Moderate bilateral facet hypertrophy produces moderate right neural foraminal stenosis and mild left neural foraminal stenosis. 2 mm of anterolisthesis of C4 on C5 with mild spinal stenosis. C5-6: Moderate broad disc osteophyte complex produces moderate spinal stenosis and moderate bilateral neural foraminal stenosis. C6-7: Moderate broad disc osteophyte complex and bilateral degenerative hypertrophy result in moderate spinal stenosis and moderate bilateral neural foraminal stenosis. C7-T1: 2 mm of anterolisthesis of C7 on T1. No spinal stenosis and mild bilateral neural foraminal stenosis. Normal visualized soft tissue structures. CT/Spine Cervical without Contras IMPRESSION: Multilevel degenerative changes, as described above. Electronically Signed: Finesse Santos MD at 17:19 EDT Tel , Service support ,
== END ==
PROVIDERS: PCP Family Medicine; Referring Provider Family Medicine; Visit Provider Family Medicine
DX: M50.30 Other cervical disc degeneration, unspecified cervical region (principal)
CPT/HCPCS: 72125

== ENCOUNTER 2021-05-30 10:33 | Outpatient (RCR) | payer MEDICARE, OTHER, SELFPAY ==
[2021-05-11 01:36] VITALS: BMI 28.8
[2021-05-30 12:25] LABS: International Normalized Ratio 2.8
== END 2021-05-30 18:00 | disposition home or self-care (01) ==
LOC: MTLAB 10:33
PROVIDERS: Family Provider Family Medicine; PCP Family Medicine; Referring Provider Family Medicine; Visit Provider Family Medicine
DX: I48.91 Unspecified atrial fibrillation (principal)
CPT/HCPCS: 36415; 85610

== ENCOUNTER 2021-06-29 10:17 | Outpatient (RCR) | payer MEDICARE, OTHER, SELFPAY ==
[2021-06-10 02:13] VITALS: BMI 28.8
[2021-06-29 12:19] LABS: AST(SGOT) 20 U/L (15-37); Alanine Aminotransfer ALT/SGPT 23 U/L (16-61); Albumin, Serum 3.5 g/dL (3.2-5.0); Alkaline Phosphatase 84 U/L (45-117); Bilirubin, Direct 0.31 mg/dL (0.00-0.30); Cholesterol 144 mg/dL (200); Globulin 3.9 g/dL (2.2-4.2); High Density Lipoprotein 37 mg/dL; International Normalized Ratio 2.4; Protein, Total 7.4 g/dL (6.4-8.2); Prothrombin Time (Protime)PT. 25.1 SECONDS (11.7-14.9); Triglycerides 145 mg/dL; Very Low Density Lipoprotein 29 mg/dL (5-40)
== END 2021-07-10 04:01 | disposition home or self-care (01) ==
LOC: MTLAB 10:17
PROVIDERS: Nurse Practitioner Family; Family Provider Family Medicine; PCP Family Medicine; Referring Provider Family Medicine; Visit Provider Family Medicine
DX: I48.91 Unspecified atrial fibrillation (principal); E78.00 Pure hypercholesterolemia, unspecified
CPT/HCPCS: 36415; 80061; 80076; 85610

== ENCOUNTER → 2021-08-26 09:53 | Outpatient (CLI) | payer MEDICARE, OTHER, SELFPAY ==
--- NOTE | 2021-08-26 09:54 | RAD_ITS ---
HISTORY: sob -- cough EXAMINATION/TECHNIQUE: XR Chest 2 Views: 2 views COMPARISON: 06/14/18 FINDINGS: LINES/DEVICES: Stable transvenous pacemaker. LUNGS: Stable coarsening of interstitial markings without pulmonary consolidation, mass, or edema. No pleural effusion or pneumothorax. MEDIASTINUM AND CARDIOVASCULAR STRUCTURES: Cardiac silhouette not enlarged. Central airways and mediastinal contour are unremarkable. BONES AND SOFT TISSUES: No acute bony abnormalities. RAD/Chest PA and Lateral IMPRESSION: No radiographic evidence of acute cardiopulmonary disease. at 2149 Reported and signed by: Thierry Pickard MD Electronically Signed: Thierry Pickard MD at 21:48 EST Tel , Service support ,
[2021-08-26 12:36] LABS: BNP,B-Type NATRIURETIC PEPTIDE 112.3 pg/mL (0-100)
== END ==
PROVIDERS: PCP Family Medicine; Referring Provider Internal Medicine Cardiovascular Disease; Visit Provider Internal Medicine Cardiovascular Disease
DX: I42.8 Other cardiomyopathies (principal); R06.02 Shortness of breath; R05.9 Cough, unspecified
CPT/HCPCS: 36415; 71046; 83880

== ENCOUNTER 2021-10-07 10:58 | Outpatient (RCR) | payer MEDICARE, OTHER, SELFPAY ==
[2021-07-10 04:02] VITALS: BMI 28.8
[2021-10-07 12:28] LABS: International Normalized Ratio 2.5; Prothrombin Time (Protime)PT. 25.9 SECONDS (11.7-14.9)
== END 2021-10-10 18:00 | disposition home or self-care (01) ==
LOC: MTLAB 10:58
PROVIDERS: Family Provider Family Medicine; PCP Family Medicine; Referring Provider Internal Medicine Cardiovascular Disease; Visit Provider Internal Medicine Cardiovascular Disease
DX: I48.20 Chronic atrial fibrillation, unspecified (principal); I42.8 Other cardiomyopathies; I44.2 Atrioventricular block, complete; I51.9 Heart disease, unspecified; E78.00 Pure hypercholesterolemia, unspecified; Z95.0 Presence of cardiac pacemaker; M50.30 Other cervical disc degeneration, unspecified cervical region; S12.100K Unspecified displaced fracture of second cervical vertebra, subsequent encounter for fracture with nonunion
CPT/HCPCS: 36415; 85610

== ENCOUNTER 2021-11-23 13:52 | Outpatient (RCR) | payer MEDICARE, OTHER, SELFPAY ==
[2021-10-11 02:37] VITALS: BMI 28.8
[2021-11-23 17:16] LABS: International Normalized Ratio 2.7
== END 2021-12-08 18:00 | disposition home or self-care (01) ==
LOC: MTLAB 13:52
PROVIDERS: Family Provider Family Medicine; PCP Family Medicine; Referring Provider Internal Medicine Cardiovascular Disease; Visit Provider Internal Medicine Cardiovascular Disease
DX: I48.20 Chronic atrial fibrillation, unspecified (principal); I44.2 Atrioventricular block, complete; Z95.0 Presence of cardiac pacemaker; I42.8 Other cardiomyopathies; I51.9 Heart disease, unspecified; E78.00 Pure hypercholesterolemia, unspecified; M50.30 Other cervical disc degeneration, unspecified cervical region; S12.100K Unspecified displaced fracture of second cervical vertebra, subsequent encounter for fracture with nonunion
CPT/HCPCS: 36415; 85610

== ENCOUNTER 2021-12-14 08:44 | Outpatient (RCR) | payer MEDICARE, OTHER, SELFPAY ==
[2021-12-09 03:18] VITALS: BMI 28.8
[2021-12-14 10:28] LABS: AST(SGOT) 21 U/L (15-37); Alanine Aminotransfer ALT/SGPT 24 U/L (16-61); Albumin, Serum 3.6 g/dL (3.2-5.0); Alkaline Phosphatase 84 U/L (45-117); Cholesterol 134 mg/dL (200); Globulin 3.6 g/dL (2.2-4.2); High Density Lipoprotein 38 mg/dL; Protein, Total 7.2 g/dL (6.4-8.2); Triglycerides 100 mg/dL; Very Low Density Lipoprotein 20 mg/dL (5-40)
[2021-12-14 10:32] LABS: International Normalized Ratio 2.5; Prothrombin Time (Protime)PT. 26.1 SECONDS (11.7-14.9)
== END 2021-12-14 18:00 | disposition home or self-care (01) ==
LOC: MTLAB 08:44
PROVIDERS: Nurse Practitioner Family; Family Provider Family Medicine; PCP Family Medicine; Referring Provider Internal Medicine Cardiovascular Disease; Visit Provider Internal Medicine Cardiovascular Disease
DX: I48.20 Chronic atrial fibrillation, unspecified (principal); I44.2 Atrioventricular block, complete; Z95.0 Presence of cardiac pacemaker; I42.8 Other cardiomyopathies; I51.9 Heart disease, unspecified; E78.00 Pure hypercholesterolemia, unspecified; M50.30 Other cervical disc degeneration, unspecified cervical region; S12.100K Unspecified displaced fracture of second cervical vertebra, subsequent encounter for fracture with nonunion
CPT/HCPCS: 36415; 80061; 80076; 85610

== ENCOUNTER → 2022-01-04 | Outpatient (CLI) | payer MEDICARE, OTHER, SELFPAY ==
--- NOTE | 2022-01-04 09:54 | RAD_ITS ---
STUDY: X-RAY - LUMBAR SPINE REASON FOR EXAM: Male, 81 years old. LUMBAR DISCOGENIC PAIN TECHNIQUE: 5 view(s) of the lumbar spine were obtained. COMPARISON: None FINDINGS: There is straightening of the normal lumbar lordosis. There is a mild levoscoliosis of the lumbar spine. There is a normal alignment of the vertebrae from L1 to L4. There is a grade 1 spondylolisthesis of L4-5. There is anatomic alignment between L5 and S1.. There is multilevel endplate spondylosis of the lumbar vertebrae. There is multi-level degenerative disc disease with multi-level disc space narrowing, most pronounced at L1-2 and L2-3 where there is vacuum disc phenomenon.. There is no demonstrated fracture. There is atherosclerotic calcification of the abdominal aorta without a demonstrated aneurysm. RAD/L/S Spine Min 4 Views IMPRESSION: Degenerative changes of the spine, as detailed above. Electronically Signed: Elroy Ward MD at 13:51 EDT ,
== END | disposition home or self-care (01) ==
LOC: MTRAD 09:52
PROVIDERS: PCP Family Medicine; Referring Provider Nurse Practitioner Family; Visit Provider Nurse Practitioner Family
DX: M51.26 Other intervertebral disc displacement, lumbar region (principal)
CPT/HCPCS: 72110

== ENCOUNTER 2022-02-01 10:58 | Outpatient (RCR) | payer MEDICARE, OTHER, SELFPAY ==
[2022-01-08 05:17] VITALS: BMI 28.8
[2022-01-27 15:37] LABS: International Normalized Ratio 2.5; Prothrombin Time (Protime)PT. 26.4 SECONDS (11.7-14.9)
[2022-02-01 12:31] LABS: International Normalized Ratio 1.5; Prothrombin Time (Protime)PT. 18.1 SECONDS (11.7-14.9)
== END 2022-02-01 18:00 | disposition home or self-care (01) ==
LOC: MTLAB 10:58
PROVIDERS: Family Provider Family Medicine; PCP Family Medicine; Referring Provider Internal Medicine Cardiovascular Disease; Visit Provider Internal Medicine Cardiovascular Disease
DX: I48.20 Chronic atrial fibrillation, unspecified (principal); I44.2 Atrioventricular block, complete; Z95.0 Presence of cardiac pacemaker; I42.8 Other cardiomyopathies; I51.9 Heart disease, unspecified; E78.00 Pure hypercholesterolemia, unspecified; M50.30 Other cervical disc degeneration, unspecified cervical region; S12.100K Unspecified displaced fracture of second cervical vertebra, subsequent encounter for fracture with nonunion
CPT/HCPCS: 36415; 85610

== ENCOUNTER 2022-02-10 08:34 | Outpatient (RCR) | payer MEDICARE, OTHER, SELFPAY ==
[2022-02-07 22:01] VITALS: BMI 28.8
[2022-02-10 10:13] LABS: International Normalized Ratio 1.8; Prothrombin Time (Protime)PT. 20.3 SECONDS (11.7-14.9)
== END 2022-03-09 16:00 | disposition home or self-care (01) ==
LOC: MTLAB 08:34
PROVIDERS: Family Provider Family Medicine; PCP Family Medicine; Referring Provider Internal Medicine Cardiovascular Disease; Visit Provider Internal Medicine Cardiovascular Disease
DX: I48.20 Chronic atrial fibrillation, unspecified (principal); Z79.01 Long term (current) use of anticoagulants; Z95.0 Presence of cardiac pacemaker; I44.2 Atrioventricular block, complete; I42.8 Other cardiomyopathies
CPT/HCPCS: 36415; 85610

== ENCOUNTER 2022-03-14 10:47 | Outpatient (RCR) | payer MEDICARE, OTHER, SELFPAY ==
[2022-03-10 10:04] VITALS: BMI 28.8
[2022-03-14 12:49] LABS: International Normalized Ratio 1.3; Prothrombin Time (Protime)PT. 15.5 SECONDS (11.7-14.9)
== END 2022-04-09 03:49 | disposition home or self-care (01) ==
LOC: MTLAB 10:47
PROVIDERS: Family Provider Family Medicine; PCP Family Medicine; Referring Provider Internal Medicine Cardiovascular Disease; Visit Provider Internal Medicine Cardiovascular Disease
DX: I48.20 Chronic atrial fibrillation, unspecified; I44.2 Atrioventricular block, complete; I42.8 Other cardiomyopathies; I51.9 Heart disease, unspecified; M50.30 Other cervical disc degeneration, unspecified cervical region; S12.100K Unspecified displaced fracture of second cervical vertebra, subsequent encounter for fracture with nonunion; X58.XXXD Exposure to other specified factors, subsequent encounter; Z95.0 Presence of cardiac pacemaker; E78.00 Pure hypercholesterolemia, unspecified
CPT/HCPCS: 36415; 85610

== ENCOUNTER 2022-04-25 11:15 | Outpatient (RCR) | payer MEDICARE, OTHER, SELFPAY ==
[2022-04-09 03:49] VITALS: BMI 28.8
[2022-04-11 12:45] LABS: International Normalized Ratio 1.3; Prothrombin Time (Protime)PT. 15.4 SECONDS (11.7-14.9)
[2022-04-25 15:13] LABS: International Normalized Ratio 2.5; Prothrombin Time (Protime)PT. 26.4 SECONDS (11.7-14.9)
== END 2022-04-25 18:00 | disposition home or self-care (01) ==
LOC: MTLAB 11:15
PROVIDERS: Family Provider Family Medicine; PCP Family Medicine; Referring Provider Internal Medicine Cardiovascular Disease; Visit Provider Internal Medicine Cardiovascular Disease
DX: I48.20 Chronic atrial fibrillation, unspecified (principal); I44.2 Atrioventricular block, complete; I42.8 Other cardiomyopathies; I51.9 Heart disease, unspecified; M50.30 Other cervical disc degeneration, unspecified cervical region; S12.100K Unspecified displaced fracture of second cervical vertebra, subsequent encounter for fracture with nonunion; X58.XXXD Exposure to other specified factors, subsequent encounter; E78.00 Pure hypercholesterolemia, unspecified; Z95.0 Presence of cardiac pacemaker
CPT/HCPCS: 36415; 85610

== ENCOUNTER 2022-05-26 11:13 | Outpatient (RCR) | payer MEDICARE, OTHER, SELFPAY ==
[2022-05-11 01:11] VITALS: BMI 28.8
[2022-05-26 12:23] LABS: International Normalized Ratio 2.4; Prothrombin Time (Protime)PT. 25.6 SECONDS (11.7-14.9)
== END 2022-05-26 18:00 | disposition home or self-care (01) ==
LOC: MTLAB 11:13
PROVIDERS: Family Provider Family Medicine; PCP Family Medicine; Referring Provider Internal Medicine Cardiovascular Disease; Visit Provider Internal Medicine Cardiovascular Disease
DX: I48.20 Chronic atrial fibrillation, unspecified (principal); I44.2 Atrioventricular block, complete; I42.8 Other cardiomyopathies; I51.9 Heart disease, unspecified; M50.30 Other cervical disc degeneration, unspecified cervical region; S12.100K Unspecified displaced fracture of second cervical vertebra, subsequent encounter for fracture with nonunion; X58.XXXD Exposure to other specified factors, subsequent encounter; E78.00 Pure hypercholesterolemia, unspecified; Z95.0 Presence of cardiac pacemaker
CPT/HCPCS: 36415; 85610

== ENCOUNTER 2022-06-20 09:04 | Outpatient (RCR) | payer MEDICARE, OTHER, SELFPAY ==
[2022-06-10 04:10] VITALS: BMI 28.8
[2022-06-20 10:19] LABS: International Normalized Ratio 1.2
== END 2022-06-20 18:00 | disposition home or self-care (01) ==
LOC: MTLAB 09:04
PROVIDERS: Family Provider Family Medicine; PCP Family Medicine; Referring Provider Internal Medicine Cardiovascular Disease; Visit Provider Internal Medicine Cardiovascular Disease
DX: I48.20 Chronic atrial fibrillation, unspecified (principal); I44.2 Atrioventricular block, complete; I42.8 Other cardiomyopathies; I51.9 Heart disease, unspecified; M50.30 Other cervical disc degeneration, unspecified cervical region; S12.100K Unspecified displaced fracture of second cervical vertebra, subsequent encounter for fracture with nonunion; X58.XXXD Exposure to other specified factors, subsequent encounter; E78.00 Pure hypercholesterolemia, unspecified; Z95.0 Presence of cardiac pacemaker
CPT/HCPCS: 36415; 85610

== ENCOUNTER 2022-07-17 15:02 | Outpatient (RCR) | payer MEDICARE, OTHER, SELFPAY ==
[2022-07-11 10:40] VITALS: BMI 28.8
[2022-07-17 18:01] LABS: International Normalized Ratio 2.7
== END 2022-08-09 18:00 | disposition home or self-care (01) ==
LOC: MTLAB 15:02
PROVIDERS: Family Provider Family Medicine; PCP Family Medicine; Referring Provider Internal Medicine Cardiovascular Disease; Visit Provider Internal Medicine Cardiovascular Disease
DX: I48.20 Chronic atrial fibrillation, unspecified (principal); I44.2 Atrioventricular block, complete; I42.8 Other cardiomyopathies; I51.9 Heart disease, unspecified; M50.30 Other cervical disc degeneration, unspecified cervical region; S12.100D Unspecified displaced fracture of second cervical vertebra, subsequent encounter for fracture with routine healing; X58.XXXD Exposure to other specified factors, subsequent encounter; E78.00 Pure hypercholesterolemia, unspecified
CPT/HCPCS: 36415; 85610

== ENCOUNTER 2022-08-09 14:00 | Outpatient (RCR) | payer MEDICARE, OTHER, SELFPAY ==
--- NOTE | 2022-07-12 14:08 | HP.PTEVAL_ITS ---
Patient's Visit Information MAIA GILES is a 82 year old M referred to Physical Therapy by JOSIAH LuisC with a diagnosis of CERVICAL SPONDYLOSIS , DEGENERATIVE OF CERVICAL DISC,ARTHROPATHY CERVICAL. Date of Evaluation: 07/12/22 Physical Therapist: Maia Reyes, PT, Cert MDT, OCS - Visit Plan Frequency: 2x /Week Duration: 4 Weeks Plan: PRECAUTION: PACEMAKER NO ESTIM. PT INTERVETIONS POSTURAL EX'S ,CERVICAL ROM ,STRENGTHNEING US/CP - Subjective This 82 y/o male presents to physical therapy for neck pain. Patient has had cervical pain for~ 1 year. Patient initially ,seen Dr recommended to see DR Presley due to seen fracture ontoid from x-rays and CATCAN . Recommended to see Neurologist in [facility] seen fx ontoid thus recommended pain management. Thus recommended PT tried nerve blocks . Patient aggravating factors turning neck ,sitting ,driving. Alleviating factors sleep. Patient sleeps good. [place] located right occiput radiates occipital region . Patient has MALCOLM and has cracks in neck. C/O paresthesia in right hand. Denies tinnitus/nausea. Patient did have fall in spring. Patient condition affects QOL and function. SOCAIL: . VOCATION: retired police - Pain Right Neck Pain Intensity (Out of 10): 2 Pain Intensity Range: 10 - Objective POSTURE: mild forward posture ,rounded shoulders head forward. PALPATION: tender occiput right. NEURO: c/o paresthesia hand ,reflexes C5-6-7 2/. AROM: BUE. CERVICAL ROM: flexion min loss ,extension mod/severe, mod loss rotation pain right ,lateral flexion mod/severe ,extension mod loss. MMT: weak RTC infraspinatus /supraspinatus 3/5 ,shoulder 3+/5 right ,left 4-/5 otherwise 4/5 - Special Tests C/S Radiculapathy - Left Upper limb tension test: Negative C/S Radiculapathy - Right Upper limb tension test: Negative C/S Radiculapathy - Left Spurlings: Negative C/S Radiculapathy - Right Spurlings: Positive C/S Radiculapathy - Right Cervical distraction: Negative C/S Radiculapathy - Left Relief test: Negative C/S Radiculapathy - Right Relief test: Negative C/S Radiculapathy - Valsalva: Negative Sharp Mark: Negative Vertebral Artery Test: Negative Alar Ligament Test: Negative - Balance/Special Test Scores Oswestry Neck Score: 23 - Goals Goal 1:: I with HEP cervical spine and posture Goal Time Frame: 4-6 Weeks Goal 2:: Patient to demonstrate 50% improvement with function and less painn Goal Time Frame: 4-6 Weeks Goal 3:: Patient improve cervical ROM for function of recovery to turn neck Goal Time Frame: 4-6 Weeks Goal 4:: Patient to improve neck oswestry score by 5 points or > to improve QOL. Goal Time Frame: 4-6 Weeks - Rehabilitation Potential Physical Therapy Diagnosis: Patient has right occiput pain with MALCOLM with pain with positioning and motion testing with x-rays showed ontoid fx thus will benefit drom skilled PT Rehabilitation Potential: Good - Anticipated Interventions Patient/Client Instruction: Educate patient on: Condition, Plan of Care For the Purpose of:: To decrease pain, To increase ROM, To improve muscle performance and motor function, To improve ability to perform ADL's, To increase tolerance to activity/condition/position, To improve performance and independence with ADL's, To improve ability of physical actions for home/community/work/leisure, To improve health of tissue, To decrease soft tissue restriction, To increase flexibility/ROM, To improve tolerance to ADL's Therapeutic Exercise to Include: Strength training, Postural training, Flexibilty training, Active ROM For the Purpose of:: To decrease pain, To increase ROM, To improve muscle performance and motor function, To improve ability to perform ADL's, To increase tolerance to activity/condition/position, To improve ability of physical actions for home/community/work/leisure, To decrease soft tissue restriction, To increase flexibility/ROM, To improve tolerance to ADL's Cryotherapy (ice pack, ice massage): Yes Thermo therapy (hot pack): Yes Ultrasound (thermal/non thermal): Yes For the Purpose of:: To decrease pain, To increase ROM, To decrease soft tissue restriction, To increase flexibility/ROM Thank you for the opportunity to evaluate your patient. For Medicare and Medicare HMO plans, please review the plan of care and approve it. It will need to be FAXED BACK to us at [phone] for Medicare purposes. For Medicare only, by signing this I certify the plan of care. Please let me know if there are questions or concerns regarding this plan of care. Physician Signature: Date:
--- NOTE | 2022-08-09 14:52 | HP.PTDCSUM_ITS ---
It has been my pleasure to treat MAIA GILES referred by DANICA Luis, with the diagnosis of CERVICAL SPONDYLOSIS , DEGENERATIVE OF CERVICAL DISC,ARTHROPATHY CERVICAL for a total of 8 visit(s). Discharge Date: 08/09/22 Please see the following information for a summary of their discharge status. Subjective: Doing good . Will do ex's on own Right Neck Pain Intensity (Out of 10): 2 % Improvement: 40 Objective/Function: POSTURE: mild forward posture. NEURO: denies pa resthesia/tingling ,reflexes intact. CERVICAL ROM: mod loss all planes Goal 1:: I with HEP cervical spine and posture Goal Progress: Goal Met Goal 2:: Patient to demonstrate 50% improvement with function and less painn Goal Progress: Goal Met Goal 3:: Patient improve cervical ROM for function of recovery to turn neck Goal Progress: Goal Met Goal 4:: Patient to improve neck oswestry score by 5 points or > to improve QOL. Goal Progress: Goal Met Plan: D/C Discharge Comments: HEP If there are questions or concerns regarding this patient's physical therapy, please feel free to call me at [phone]. Thank you for the referral of this patient. Sincerely, Maia Reyes, PT, Cert MDT, OCS Balance/Gait/Functional tests - Balance/Special Test Scores Oswestry Neck Score: 11
== END 2022-08-09 19:00 | disposition home or self-care (01) ==
LOC: PT 14:00
PROVIDERS: PCP Family Medicine; Referring Provider Nurse Practitioner Family; Visit Provider Nurse Practitioner Family
DX: M50.30 Other cervical disc degeneration, unspecified cervical region (principal); M47.812 Spondylosis without myelopathy or radiculopathy, cervical region; M48.9 Spondylopathy, unspecified
CPT/HCPCS: 97110; 97162

== ENCOUNTER 2022-08-28 11:05 | Outpatient (RCR) | payer MEDICARE, OTHER, SELFPAY ==
[2022-08-10 02:36] VITALS: BMI 28.8
[2022-08-21 10:10] LABS: International Normalized Ratio 3.5; Prothrombin Time (Protime)PT. 34.7 SECONDS (11.7-14.9)
[2022-08-21 10:44] LABS: AST(SGOT) 22 U/L (15-37); Alanine Aminotransfer ALT/SGPT 23 U/L (16-61); Albumin, Serum 3.4 g/dL (3.2-5.0); Alkaline Phosphatase 75 U/L (45-117); Bilirubin, Direct 0.29 mg/dL (0.00-0.30); Cholesterol 163 mg/dL (200); Globulin 3.2 g/dL (2.2-4.2); High Density Lipoprotein 35 mg/dL; Protein, Total 6.6 g/dL (6.4-8.2); Triglycerides 171 mg/dL; Very Low Density Lipoprotein 34 mg/dL (5-40)
[2022-08-28 12:13] LABS: Prothrombin Time (Protime)PT. 30.8 SECONDS (11.7-14.9)
== END 2022-08-28 18:00 | disposition home or self-care (01) ==
LOC: MTLAB 11:05
PROVIDERS: Nurse Practitioner Family; Family Provider Family Medicine; PCP Family Medicine; Referring Provider Internal Medicine Cardiovascular Disease; Visit Provider Internal Medicine Cardiovascular Disease
DX: I48.20 Chronic atrial fibrillation, unspecified (principal); I44.2 Atrioventricular block, complete; I42.8 Other cardiomyopathies; I51.9 Heart disease, unspecified; M50.30 Other cervical disc degeneration, unspecified cervical region; S12.100K Unspecified displaced fracture of second cervical vertebra, subsequent encounter for fracture with nonunion; E78.00 Pure hypercholesterolemia, unspecified; Z95.0 Presence of cardiac pacemaker
CPT/HCPCS: 36415; 80061; 80076; 85610

== ENCOUNTER 2022-09-12 10:58 | Outpatient (RCR) | payer MEDICARE, OTHER, SELFPAY ==
[2022-09-10 06:39] VITALS: BMI 28.8
[2022-09-12 12:38] LABS: International Normalized Ratio 2.6; Prothrombin Time (Protime)PT. 27.2 SECONDS (11.7-14.9)
== END 2022-09-12 12:58 | disposition home or self-care (01) ==
LOC: MTLAB 10:58
PROVIDERS: Family Provider Family Medicine; PCP Family Medicine; Referring Provider Internal Medicine Cardiovascular Disease; Visit Provider Internal Medicine Cardiovascular Disease
DX: I48.20 Chronic atrial fibrillation, unspecified (principal); I44.2 Atrioventricular block, complete; I42.8 Other cardiomyopathies; I51.9 Heart disease, unspecified; M50.30 Other cervical disc degeneration, unspecified cervical region; S12.100K Unspecified displaced fracture of second cervical vertebra, subsequent encounter for fracture with nonunion; E78.00 Pure hypercholesterolemia, unspecified; Z95.0 Presence of cardiac pacemaker
CPT/HCPCS: 36415; 85610

== ENCOUNTER 2022-10-23 09:09 | Outpatient (RCR) | payer MEDICARE, OTHER, SELFPAY ==
[2022-10-11 07:26] VITALS: BMI 28.8
[2022-10-23 10:05] LABS: International Normalized Ratio 2.4; Prothrombin Time (Protime)PT. 26.2 SECONDS (11.7-14.9)
== END 2022-10-23 18:00 | disposition home or self-care (01) ==
LOC: MTLAB 09:09
PROVIDERS: Family Provider Family Medicine; PCP Family Medicine; Referring Provider Internal Medicine Cardiovascular Disease; Visit Provider Internal Medicine Cardiovascular Disease
DX: I48.20 Chronic atrial fibrillation, unspecified (principal); I44.2 Atrioventricular block, complete; I42.8 Other cardiomyopathies; I51.9 Heart disease, unspecified; M50.30 Other cervical disc degeneration, unspecified cervical region; S12.100K Unspecified displaced fracture of second cervical vertebra, subsequent encounter for fracture with nonunion; X58.XXXD Exposure to other specified factors, subsequent encounter; E78.00 Pure hypercholesterolemia, unspecified; Z95.0 Presence of cardiac pacemaker
CPT/HCPCS: 36415; 85610

== ENCOUNTER 2022-11-20 09:16 | Outpatient (RCR) | payer MEDICARE, OTHER, SELFPAY ==
[2022-11-07 23:26] VITALS: BMI 28.8
[2022-11-20 09:54] LABS: International Normalized Ratio 2.3; Prothrombin Time (Protime)PT. 24.7 SECONDS (11.7-14.9)
== END 2022-12-08 18:00 | disposition home or self-care (01) ==
LOC: MTLAB 09:16
PROVIDERS: Nurse Practitioner Family; Family Provider Family Medicine; PCP Family Medicine; Referring Provider Internal Medicine Cardiovascular Disease; Visit Provider Internal Medicine Cardiovascular Disease
DX: I48.20 Chronic atrial fibrillation, unspecified (principal); Z79.01 Long term (current) use of anticoagulants
CPT/HCPCS: 36415; 85610

== ENCOUNTER 2022-12-18 09:12 | Outpatient (RCR) | payer MEDICARE, OTHER, SELFPAY ==
[2022-12-08 21:04] VITALS: BMI 28.8
[2022-12-18 10:16] LABS: International Normalized Ratio 2.8; Prothrombin Time (Protime)PT. 29.1 SECONDS (11.7-14.9)
== END 2023-01-07 05:30 | disposition home or self-care (01) ==
LOC: MTLAB 09:12
PROVIDERS: Family Provider Family Medicine; PCP Family Medicine; Referring Provider Internal Medicine Cardiovascular Disease; Visit Provider Internal Medicine Cardiovascular Disease
DX: I48.20 Chronic atrial fibrillation, unspecified (principal); Z79.01 Long term (current) use of anticoagulants
CPT/HCPCS: 36415; 85610

== ENCOUNTER 2023-01-15 09:54 | Outpatient (RCR) | payer MEDICARE, OTHER, SELFPAY ==
[2023-01-07 05:30] VITALS: BMI 28.8
[2023-01-15 12:18] LABS: International Normalized Ratio 2.5; Prothrombin Time (Protime)PT. 27.2 SECONDS (11.7-14.9)
== END 2023-01-15 10:54 | disposition home or self-care (01) ==
LOC: MTLAB 09:54
PROVIDERS: Family Provider Family Medicine; PCP Family Medicine; Referring Provider Internal Medicine Cardiovascular Disease; Visit Provider Internal Medicine Cardiovascular Disease
DX: I48.20 Chronic atrial fibrillation, unspecified (principal); Z79.01 Long term (current) use of anticoagulants
CPT/HCPCS: 36415; 85610

== ENCOUNTER 2023-02-19 09:09 | Outpatient (RCR) | payer MEDICARE, OTHER, SELFPAY ==
[2023-02-08 08:18] VITALS: BMI 28.8
[2023-02-19 10:29] LABS: International Normalized Ratio 3.1; Prothrombin Time (Protime)PT. 32.3 SECONDS (11.7-14.9)
== END 2023-02-19 18:00 | disposition home or self-care (01) ==
LOC: MTLAB 09:09
PROVIDERS: Family Provider Family Medicine; PCP Family Medicine; Referring Provider Internal Medicine Cardiovascular Disease; Visit Provider Internal Medicine Cardiovascular Disease
DX: I48.20 Chronic atrial fibrillation, unspecified (principal); Z79.01 Long term (current) use of anticoagulants
CPT/HCPCS: 36415; 85610

== ENCOUNTER 2023-03-19 09:17 | Outpatient (RCR) | payer MEDICARE, OTHER, SELFPAY ==
[2023-03-10 02:52] VITALS: BMI 28.8
[2023-03-19 10:24] LABS: International Normalized Ratio 2.6; Prothrombin Time (Protime)PT. 28.2 SECONDS (11.7-14.9)
[2023-03-19 11:00] LABS: AST(SGOT) 23 U/L (15-37); Alanine Aminotransfer ALT/SGPT 22 U/L (16-61); Albumin, Serum 3.4 g/dL (3.2-5.0); Alkaline Phosphatase 99 U/L (45-117); Cholesterol 135 mg/dL (200); Globulin 3.9 g/dL (2.2-4.2); High Density Lipoprotein 37 mg/dL; Protein, Total 7.3 g/dL (6.4-8.2); Triglycerides 136 mg/dL; Very Low Density Lipoprotein 27 mg/dL (5-40)
== END 2023-04-09 18:00 | disposition home or self-care (01) ==
LOC: MTLAB 09:17
PROVIDERS: Nurse Practitioner Family; Family Provider Family Medicine; PCP Family Medicine; Referring Provider Internal Medicine Cardiovascular Disease; Visit Provider Internal Medicine Cardiovascular Disease
DX: I48.20 Chronic atrial fibrillation, unspecified (principal); Z79.01 Long term (current) use of anticoagulants
CPT/HCPCS: 36415; 80061; 80076; 85610

== ENCOUNTER 2023-04-16 09:16 | Outpatient (RCR) | payer MEDICARE, OTHER, SELFPAY ==
[2023-04-10 02:30] VITALS: BMI 28.8
[2023-04-16 12:22] LABS: International Normalized Ratio 2.4; Prothrombin Time (Protime)PT. 26.7 SECONDS (11.7-14.9)
== END 2023-04-16 18:00 | disposition home or self-care (01) ==
LOC: MTLAB 09:16
PROVIDERS: Family Provider Family Medicine; PCP Family Medicine; Referring Provider Internal Medicine Cardiovascular Disease; Visit Provider Internal Medicine Cardiovascular Disease
DX: I48.20 Chronic atrial fibrillation, unspecified (principal); Z79.01 Long term (current) use of anticoagulants
CPT/HCPCS: 36415; 85610

== ENCOUNTER 2023-05-31 14:54 | Outpatient (RCR) | payer MEDICARE, OTHER, SELFPAY ==
[2023-05-11 02:18] VITALS: BMI 28.8
[2023-05-17 10:51] LABS: Anion Gap 3 (5-15); BUN 24 mg/dL (7-18); Calcium,Total 8.6 mg/dL (8.5-10.1); Chloride 111 mmol/L (98-107); EST Glomerular Filtration Rate 61 mL/min (>60); Est Glom Filt Rate - Afr Amer 74 mL/min (>60); Glucose 100 mg/dL (74-106); Potassium 3.9 mmol/L (3.5-5.1); Sodium Level 142 mmol/L (136-145)
[2023-05-17 10:53] LABS: International Normalized Ratio 3.1; Prothrombin Time (Protime)PT. 32.1 SECONDS (11.7-14.9)
[2023-05-31 18:14] LABS: AST(SGOT) 21 U/L (15-37); Alanine Aminotransfer ALT/SGPT 26 U/L (16-61); Albumin, Serum 3.6 g/dL (3.2-5.0); Alkaline Phosphatase 100 U/L (45-117); Bilirubin, Direct 0.41 mg/dL (0.00-0.30); Cholesterol 130 mg/dL (200); Globulin 3.5 g/dL (2.2-4.2); High Density Lipoprotein 39 mg/dL; Protein, Total 7.1 g/dL (6.4-8.2); Triglycerides 144 mg/dL; Very Low Density Lipoprotein 29 mg/dL (5-40)
[2023-05-31 18:26] LABS: International Normalized Ratio 2.8; Prothrombin Time (Protime)PT. 30.2 SECONDS (11.7-14.9)
== END 2023-05-31 18:00 | disposition home or self-care (01) ==
LOC: MTLAB 14:54
PROVIDERS: Nurse Practitioner Family; Family Provider Family Medicine; PCP Family Medicine; Referring Provider Internal Medicine Cardiovascular Disease; Visit Provider Internal Medicine Cardiovascular Disease
DX: I48.20 Chronic atrial fibrillation, unspecified (principal); Z79.01 Long term (current) use of anticoagulants; I42.8 Other cardiomyopathies; I44.2 Atrioventricular block, complete; Z95.0 Presence of cardiac pacemaker; I51.9 Heart disease, unspecified; E78.00 Pure hypercholesterolemia, unspecified; S12.100A Unspecified displaced fracture of second cervical vertebra, initial encounter for closed fracture
CPT/HCPCS: 36415; 80048; 80061; 80076; 85610

== ENCOUNTER 2023-07-03 10:26 | Outpatient (RCR) | payer MEDICARE, OTHER, SELFPAY ==
[2023-06-10 05:11] VITALS: BMI 28.8
[2023-07-03 12:48] LABS: International Normalized Ratio 2.5
== END 2023-07-03 18:00 | disposition home or self-care (01) ==
LOC: MTLAB 10:26
PROVIDERS: Family Provider Family Medicine; PCP Family Medicine; Referring Provider Internal Medicine Cardiovascular Disease; Visit Provider Internal Medicine Cardiovascular Disease
DX: I48.20 Chronic atrial fibrillation, unspecified (principal); Z79.01 Long term (current) use of anticoagulants
CPT/HCPCS: 36415; 85610

== ENCOUNTER 2023-07-23 13:39 | Outpatient (RCR) | payer MEDICARE, OTHER, SELFPAY ==
[2023-07-10 23:19] VITALS: BMI 28.8
[2023-07-23 15:49] LABS: International Normalized Ratio 3.3; Prothrombin Time (Protime)PT. 33.9 SECONDS (11.7-14.9)
== END 2023-08-09 18:00 | disposition home or self-care (01) ==
LOC: MTLAB 13:39
PROVIDERS: Family Provider Family Medicine; PCP Family Medicine; Referring Provider Internal Medicine Cardiovascular Disease; Visit Provider Internal Medicine Cardiovascular Disease
DX: I48.20 Chronic atrial fibrillation, unspecified (principal); Z79.01 Long term (current) use of anticoagulants
CPT/HCPCS: 36415; 85610

== ENCOUNTER 2023-08-23 14:04 | Outpatient (RCR) | payer MEDICARE, OTHER, SELFPAY ==
[2023-08-10 04:25] VITALS: BMI 28.8
[2023-08-23 15:28] LABS: Prothrombin Time (Protime)PT. 22.6 SECONDS (11.7-14.9)
== END 2023-09-09 18:00 | disposition home or self-care (01) ==
LOC: MTLAB 14:04
PROVIDERS: Family Provider Family Medicine; PCP Family Medicine; Referring Provider Internal Medicine Cardiovascular Disease; Visit Provider Internal Medicine Cardiovascular Disease
DX: I48.20 Chronic atrial fibrillation, unspecified (principal); Z79.01 Long term (current) use of anticoagulants
CPT/HCPCS: 36415; 85610

== ENCOUNTER 2023-09-04 21:09 | Emergency (ER) | payer MEDICARE, OTHER, SELFPAY ==
--- NOTE | 2023-09-04 | RAD_ITS ---
EXAM: XR LEFT RIBS AND AP CHEST, 3 OR MORE VIEWS CLINICAL INDICATION: Pain TECHNIQUE: Frontal and oblique views of the left ribs and frontal view of the chest. COMPARISON: No relevant prior studies available. FINDINGS: LUNGS AND PLEURAL SPACES: Bibasilar atelectasis. No pneumothorax. No effusion. HEART: Unremarkable. Cardiac silhouette not enlarged. MEDIASTINUM: Central airways and mediastinal contour are unremarkable. BONES/JOINTS: Nondisplaced left posterior sixth rib fracture. TUBES, LINES AND DEVICES: Left chest pacer. RAD/Ribs Uni Min 3V w/PA Chest IMPRESSION: Nondisplaced left posterior sixth rib fracture. Bibasilar atelectasis. Electronically Signed: Speedy Rodriguez MD at 0:33 EST ,
--- NOTE | 2023-09-04 21:11 | CT_ITS ---
EXAM: CT HEAD WITHOUT INTRAVENOUS CONTRAST CLINICAL INDICATION: fall pain. TECHNIQUE: Multiple axial images were obtained of the head without intravenous contrast. This CT exam was performed using one or more of the following dose reduction techniques: automated exposure control, adjustment of the mA and/or kV according to patient size, and/or use of iterative reconstruction technique. COMPARISON: No relevant prior studies available. FINDINGS: BRAIN AND EXTRA-AXIAL SPACES: There is non-specific periventricular hypoattenuation which is most commonly related to chronic microvascular ischemic disease in a patient of this age. There is no mass, mass-effect, or shift of the midline structures. No evidence of acute infarct or acute intracranial hemorrhage. There is no evidence of pathologic extra-axial fluid. There is no hydrocephalus. Patent basal cisterns. BONES/JOINTS: Degenerative changes at the craniocervical junction. No discrete lytic or blastic abnormalities. VASCULATURE: Arteriosclerosis. SINUSES: Mucus retention cyst in the left maxillary sinus. MASTOID AIR CELLS: No significant effusion. ORBITS: Bilateral ocular lens extraction presumptively for the treatment of cataracts. Otherwise, no acute orbital pathology. DENTAL: The maxilla appears edentulous. CT/Brain/Head without Contrast IMPRESSION: No acute intracranial pathology. Electronically Signed: Subhash Chino DO at 21:32 EST ,
--- NOTE | 2023-09-04 21:12 | ED.RN ---
Verbal order from Dr. Gonzalez to put in order for CT head without contrast x1 stat.
[2023-09-04 21:13] VITALS: BP 139/67; PULSE 75; RESP 17; TEMP 36.2; O2SAT 98
[2023-09-04 21:26] VITALS: BMI 31.1
--- NOTE | 2023-09-04 21:31 | EDS_ITS ---
HPI HPI - Fall History of Present Illness Chief Complaint: Fall Narrative Narrative: 83-year-old male past medical history of atrial fibrillation on anticoagulation, pacemaker, on Coumadin presents via EMS status post fall. He states he was taking his garbage out, was wheeling the been out to the end of the driveway, and had mechanical fall. He denies any prodromal symptoms such as chest pain or shortness of breath. He did hit his head but there was no loss of consciousness. He was unable to get up. His neighbor found him, and called EMS. EMS thought maybe he had slightly slurred speech, and since he hit his head and is on Coumadin, present him to the emergency department. Patient relates history that he had upper respiratory infection type symptoms today and had nausea and vomiting earlier. He denies any other injury, no hip pain, no headache. He does state that he lives at home alone. [facility] Medical History BPH (benign prostatic hyperplasia) Chronic atrial fibrillation Complete heart block Degenerative disc disease, cervical Left ventricular diastolic dysfunction custodial current use of anticoagulant Non-ischemic cardiomyopathy Nonobstructive atherosclerosis of coronary artery Obesity Odontoid fracture with nonunion Pure hypercholesterolemia Tachycardia-bradycardia syndrome Home Medications carvedilol 6.25 mg tablet 6.25 mg PO BID #180 tabs 10/09/22 [Rx Last Taken Unknown] warfarin 1 mg tablet 1 mg PO QDAY #90 tabs 10/09/22 [Rx Last Taken Unknown] warfarin 6 mg tablet 6 mg PO DAILY #90 tabs 10/09/22 [Rx Last Taken Unknown] furosemide 40 mg tablet (Lasix) 40 mg PO .PRN PRN edema, SOB #90 tabs 04/16/23 [Rx Last Taken Unknown] losartan 25 mg tablet 25 mg PO DAILY #90 tabs 05/29/23 [Rx Last Taken Unknown] pravastatin 40 mg tablet 40 mg PO .3XWEEK #40 tabs 05/29/23 [Rx Last Taken Unknown] Allergy/AdvReac Type Severity Reaction Status Date / Time No Known Allergies Allergy Verified 09/04/23 21:10 Family History Father Leukemia Mother Breast cancer Brother CAD (coronary artery disease) Diabetes Brother Myocardial infarction Brother Diabetes Son Heart disease Surgical History History of cholecystectomy History of left heart catheterization (11/2003) History of permanent cardiac pacemaker placement (06/24/18) History of radiofrequency ablation procedure for cardiac arrhythmia (10/10/01) Status post correction of deviated nasal septum Social History Smoking Status: Former smoker how long ago did patient quit smokin years ago alcohol intake: current alcohol intake frequency: a few times a month Alcohol type: beer substance use type: does not use caffeine: Yes Type: coffee Number of servings: 1 what type of physical activity do you participate in: none seatbelt use: always do you feel safe at home: Yes ROS ROS ED ROS Narrative Constitutional: No fever, no chills. HEENT: No sore throat. No neck pain. No loss of vision. No rhinorrhea. Hit head, but no loss of consciousness during mechanical fall. Upper respiratory infection type symptoms. Cardiovascular: No chest pain. No palpitations. No pedal edema. Respiratory: No cough, no shortness of breath. Abdominal: No abdominal pain. Nausea and vomiting today. Genitourinary: No dysuria. No hematuria. Musculoskeletal: No myalgias. No arthralgias. Hip pain. However, was unable to get up by himself at the end of the driveway. Neurologic: No headaches. No dizziness. No lightheadedness. Skin: No rash. No change in color. Psychiatric: No depression. No anxiety. EXAM Physical Exam Narrative Exam Narrative: Afebrile. Vital signs noted. Yes 15. ABCs intact. HEENT: Normocephalic. Atraumatic. PERRL, EOMI. Neck soft and supple. No point tenderness or step off. Cardiovascular: Regular rate and rhythm. No murmurs, rubs, or gallops appreciated. Respiratory: No tachypnea. Lungs clear to auscultation bilaterally. Gastrointestinal: Abdomen soft, nontender, with normoactive bowel sounds. No rebound or guarding. Neurological: Awake. Alert. Nonfocal, nonlateralizing. Skin: No rash. Normal color. No pallor. Musculoskeletal: No pedal edema. Full range of motion extremities. Stable. Bilateral hip flexion and extension intact along with bilateral knee flexion and extension. Good muscle strength bilateral lower extremities. Const Vital Signs: 09/04/23 21:13 09/04/23 21:16 09/04/23 23:37 Temperature 97.1 F L Temperature Source Temporal Pulse Rate 75 70 Respiratory Rate 17 18 Respiratory Effort Normal Non-Labored Respiratory Depth Normal Respiratory Pattern Normal Blood Pressure 139/67 H 108/61 Blood Pressure Mean 91 76 Pulse Ox 98 96 Oxygen Delivery Method Room Air Room Air Room Air MDM MDM MDM Narrative Medical decision making narrative: Concern is for intracranial hemorrhage or skull fracture as this is a head injury on anticoagulation. CT of the brain was obtained and I reviewed the imaging and see no evidence of a skull fracture or hematoma or hemorrhage. I reviewed the radiology report which confirms my independent interpretation of his CT imaging as well. I checked his INR and it is therapeutic at 2.3. I did check basic laboratory work as well which shows normal white count of 8.6 with hemoglobin normal at 13.9, platelet count low at 89, but he does have a chronic thrombocytopenia, however it has not been this low. Regardless, I do not feel that he requires platelet transfusion currently. Rechecked his BMP and he has normal sodium of 139 with potassium normal at 4.0, glucose appropriately elevated at 128 with a normal anion gap of 5. Creatinine slightly elevated at 1.42 which is just slightly above his previous value of 1.2. It has been as high as 1.5 in the past. X-rays of the pelvis and 1-2 views was obtained and interpreted by myself which shows no evidence of hip dislocation or fracture, no pelvic fracture. Usually ambulates independently. He will be ambulated here in the emergency department. While his relatives are at the bedside, they are unsure if anyone can stay with him this evening. Patient does have history of chronic low back and neck pain, but I do not feel imaging is indicated as he denies any new pain or injury to his low back or neck. As the patient was able to ambulate, he began complaining of left-sided rib pain, at a point in the mid axillary line on the left side. Upon examination there was no crepitance. I will obtain rib x-rays to help rule out fracture and he was given Tylenol for analgesia. X-rays of the left ribs interpreted by myself independently show nondisplaced sixth rib fracture but no evidence of pneumothorax or hemothorax. I reviewed the radiology report which confirms my independent interpretation. I discussed with him the use of narcotic pain medication but he declined stating he prefers Tylenol. He was given an ice pack for comfort along with an incentive spirometer to use 10 times every hour while awake to prevent pneumonia. I feel he be discharged safely home with follow-up. Return instructions were reviewed. One of his family members stated that she would stay the night with him. I do not feel he requires observation or transfer at this time. Disposition is discharged home in stable condition. History & Record Review Discussion w/independent historian: Patient Lab Data Attestation: I reviewed the patient's lab results. Labs: Laboratory Results - last 24 hr 09/04/23 21:23 WBC 8.6 RBC 4.22 L Hgb 13.9 Hct 41.5 MCV 98.3 H MCH 32.9 H MCHC 33.5 RDW Std Deviation 46.0 H RDW Coeff of Peggy 12.9 Plt Count 89 L MPV 10.6 Immature Gran % (Auto) 0.600 Neut % (Auto) 78.5 H Lymph % (Auto) 5.4 L Daniels % (Auto) 14.9 H Eos % (Auto) 0.1 Baso % (Auto) 0.5 Absolute Neuts (auto) 6.8 Absolute Lymphs (auto) 0.46 L Nucleated RBC % 0 Differential Comment SCANNED PT 25.8 H INR 2.3 Sodium 139 Potassium 4.0 Chloride 107 Carbon Dioxide 27.0 Anion Gap 5 BUN 29 H Creatinine 1.42 H Estim Creat Clear Calc 42.98 Est GFR (MDRD) Af Amer 61 Est GFR (MDRD) Non-Af 50 L BUN/Creatinine Ratio 20.4 H Glucose 128 H Calcium 9.1 Radiography Diagnostic Testing: Clinical Impression(s) from Imaging Studies Ribs w/Chest X-Ray 09/04/23 00:00 IMPRESSION: Nondisplaced left posterior sixth rib fracture. Bibasilar atelectasis. Electronically Signed: Speedy Rodriguez MD at 0:33 EST , Brain CT 09/04/23 21:11 IMPRESSION: No acute intracranial pathology. Electronically Signed: Subhash Chino DO at 21:32 EST , Pelvis X-Ray 09/04/23 21:47 IMPRESSION: No evidence of fracture on single view pelvis. Electronically Signed: Jasmine Buckner MD at 22:17 EST , Discharge Plan Triage Chief Complaint: Fall ED Provider: Sundar Solis Dx/Rx/DC Orders Clinical Impression: Closed fracture of rib of left side, Closed head injury, Fall Instructions: ED Mechanical Fall, ED Rib Fracture, ED Head Injury (Adult) Prescriptions: No Action carvedilol 6.25 mg tablet 6.25 mg PO BID Qty: 180 3RF warfarin 6 mg tablet 6 mg PO DAILY Qty: 90 3RF Protocol: Dose Management Condition: Sunday Dose/Route: 6 mg Instruction: 1 x 6 mg tablet Condition: Sunday Dose/Route: 6 mg Instruction: 1 x 6 mg tablet Condition: Sunday Dose/Route: 6 mg Instruction: 1 x 6 mg tablet Condition: Sunday Dose/Route: 6 mg Instruction: 1 x 6 mg tablet Condition: Dose/Route: 6 mg Instruction: 1 x 6 mg tablet Condition: Sunday Dose/Route: 6 mg Instruction: 1 x 6 mg tablet Condition: Sunday Dose/Route: 6 mg Instruction: 1 x 6 mg tablet Protocol Text: Adjustment Start Date: 08/23/23 INR Value: 2.0 INR Date: 08/23/23 Recheck Date: 09/13/23 warfarin 1 mg tablet 1 mg PO QDAY Qty: 90 3RF Protocol: Dose Management Condition: Sunday Dose/Route: 6 mg Instruction: 1 x 6 mg tablet Condition: Sunday Dose/Route: 6 mg Instruction: 1 x 6 mg tablet Condition: Sunday Dose/Route: 6 mg Instruction: 1 x 6 mg tablet Condition: Sunday Dose/Route: 6 mg Instruction: 1 x 6 mg tablet Condition: Dose/Route: 6 mg Instruction: 1 x 6 mg tablet Condition: Sunday Dose/Route: 6 mg Instruction: 1 x 6 mg tablet Condition: Sunday Dose/Route: 6 mg Instruction: 1 x 6 mg tablet Protocol Text: Adjustment Start Date: 08/23/23 INR Value: 2.0 INR Date: 08/23/23 Recheck Date: 09/13/23 furosemide [Lasix] 40 mg tablet 40 mg PO .PRN PRN (Reason: edema, SOB) Qty: 90 5RF pravastatin 40 mg tablet 40 mg PO .3XWEEK Qty: 40 3RF losartan 25 mg tablet 25 mg PO DAILY Qty: 90 3RF Primary Care Provider: Karsten Martinez Referrals: Karsten Martinez MD [Primary Care Provider] - 1 Week Activity Restrictions/Additional Instructions: Tylenol as directed for pain. Apply ice to the affected area as needed for 10 to 15 minutes a few times a day for the next few days. Return with fever, increased difficulty breathing, new or worsening symptoms. You have a nondisplaced sixth rib fracture. Use incentive spirometer and take 10 deep breaths every hour while you are awake. Disposition Disposition: Home, Self Care
--- NOTE | 2023-09-04 21:47 | RAD_ITS ---
INDICATION: fall, trauma EXAMINATION/TECHNIQUE: X-RAY - XR Pelvis 1 or 2 Views COMPARISON: FINDINGS: Single view pelvis. No fracture demonstrated. The femoral heads are normal in contour. No dislocation of the hips. Sacrum partially obscured by stool. Surgical clips in the pelvis. Degenerative changes in the lower lumbar spine. RAD/Pelvis 1 or 2 Views IMPRESSION: No evidence of fracture on single view pelvis. Electronically Signed: Jasmine Buckner MD at 22:17 EST ,
[2023-09-04 21:55] LABS: Absolute Lymphocyte Count 0.46 X10^3/uL (0.83-4.51); Absolute Neutrophil Count 6.8 X10^3/uL (2.0-7.7); Basophil# 0.04 X10^3/uL; Basophil% 0.5 % (0-1); Eosinophil# 0.01 X10^3/uL; Eosinophils% 0.1 % (0-5); Hematocrit 41.5 % (40-54); Hemoglobin 13.9 g/dL (13.0-16.5); Lymphocyte # 0.46 X10^3/ul (0.83-4.51); Lymphocyte % 5.4 % (19-41); Mean Corp Hgb Conc 33.5 g/dL (32-36); Mean Corpuscular Hgb 32.9 pg (27.0-32.0); Mean Corpuscular Volume 98.3 fL (80-94); Mean Platelet Vol. 10.6 fl (6.2-12.0); Monocyte# 1.28 X10^3/uL; Monocyte% 14.9 % (0-10); NRBC Flagged by Analyzer 0 % (0-5); Neutrophil # 6.75 X10^3/uL (2.7-7.7); Neutrophil % 78.5 % (47-70); POSITIVE COUNT YES; POSITIVE DIFFERENTIAL YES; Platelet Count 89 K/mm3 (150-450); RBC Distribution Width CV 12.9 % (11.6-14.6); Red Blood Count 4.22 M/mm3 (4.6-6.2); White Blood Count 8.6 K/mm3 (4.4-11.0)
[2023-09-04 21:56] LABS: Differential Indicated SCAN CRITERIA MET
[2023-09-04 21:57] LABS: Anion Gap 5 (5-15); BUN 29 mg/dL (7-18); BUN/Creat Ratio 20.4 RATIO (10-20); Calcium,Total 9.1 mg/dL (8.5-10.1); Chloride 107 mmol/L (98-107); Creatinine, Serum 1.42 mg/dL (0.70-1.30); EST Glomerular Filtration Rate 50 mL/min (>60); Est Glom Filt Rate - Afr Amer 61 mL/min (>60); Estimated Creatinine Clearance 42.98 ml/min; Glucose 128 mg/dL (74-106); Sodium Level 139 mmol/L (136-145)
[2023-09-04 22:10] LABS: International Normalized Ratio 2.3; Prothrombin Time (Protime)PT. 25.8 SECONDS (11.7-14.9)
[2023-09-04 22:26] LABS: Differential Comment SCANNED
[2023-09-04 23:37] VITALS: BP 108/61; PULSE 70; RESP 18; O2SAT 96
[2023-09-05] MEDS: Acetaminophen 325 MG Tablet 650 MG PO (00:38)
[2023-09-05 01:00] VITALS: BP 110/70; PULSE 65; RESP 15; O2SAT 94
== END 2023-09-05 01:01 | disposition home or self-care (01) ==
PROVIDERS: Emergency Provider Emergency Medicine; PCP Family Medicine; Visit Provider Emergency Medicine
DX: S22.32XA Fracture of one rib, left side, initial encounter for closed fracture (principal); I48.20 Chronic atrial fibrillation, unspecified; D69.6 Thrombocytopenia, unspecified; S09.90XA Unspecified injury of head, initial encounter; E78.00 Pure hypercholesterolemia, unspecified; Z87.891 Personal history of nicotine dependence; I25.10 Atherosclerotic heart disease of native coronary artery without angina pectoris; Z79.01 Long term (current) use of anticoagulants; Z95.0 Presence of cardiac pacemaker; W19.XXXA Unspecified fall, initial encounter
CPT/HCPCS: 70450; 71101; 72170; 80048; 85025; 85610; 99284; A4216

== ENCOUNTER 2023-09-27 10:45 | Outpatient (RCR) | payer MEDICARE, OTHER, SELFPAY ==
[2023-09-09 23:44] VITALS: BMI 28.8
[2023-09-27 12:13] LABS: Absolute Lymphocyte Count 1.02 X10^3/uL (0.83-4.51); Absolute Neutrophil Count 5.1 X10^3/uL (2.0-7.7); Basophil# 0.05 X10^3/uL; Basophil% 0.7 % (0-1); Eosinophil# 0.13 X10^3/uL; Eosinophils% 1.8 % (0-5); Hematocrit 43.8 % (40-54); Hemoglobin 14.8 g/dL (13.0-16.5); Lymphocyte # 1.02 X10^3/ul (0.83-4.51); Lymphocyte % 13.8 % (19-41); Mean Corp Hgb Conc 33.8 g/dL (32-36); Mean Corpuscular Hgb 33.6 pg (27.0-32.0); Mean Corpuscular Volume 99.5 fL (80-94); Mean Platelet Vol. 10.7 fl (6.2-12.0); Monocyte# 1.06 X10^3/uL; Monocyte% 14.3 % (0-10); NRBC Flagged by Analyzer 0 % (0-5); Neutrophil # 5.12 X10^3/uL (2.7-7.7); Platelet Count 126 K/mm3 (150-450); RBC Distribution Width SD 47.8 fl (35.1-43.9); White Blood Count 7.4 K/mm3 (4.4-11.0)
[2023-09-27 12:32] LABS: International Normalized Ratio 2.8; Prothrombin Time (Protime)PT. 29.4 SECONDS (11.7-14.9)
[2023-09-27 13:02] LABS: Vitamin B12 216 pg/mL (211-911)
[2023-09-27 13:07] LABS: ALB/GLOB Ratio 0.9 RATIO (0.9-2.4); AST(SGOT) 27 U/L (15-37); Alanine Aminotransfer ALT/SGPT 22 U/L (16-61); Albumin, Serum 3.2 g/dL (3.2-5.0); Alkaline Phosphatase 109 U/L (45-117); Anion Gap 7 (5-15); BUN 18 mg/dL (7-18); BUN/Creat Ratio 13.6 RATIO (10-20); Calcium,Total 8.8 mg/dL (8.5-10.1); Chloride 108 mmol/L (98-107); Cholesterol 128 mg/dL (200); Creatinine, Serum 1.32 mg/dL (0.70-1.30); EST Glomerular Filtration Rate 55 mL/min (>60); Est Glom Filt Rate - Afr Amer 66 mL/min (>60); Globulin 3.7 g/dL (2.2-4.2); Glucose 104 mg/dL (74-106); High Density Lipoprotein 38 mg/dL; Magnesium 2.2 mg/dL (1.6-2.6); Potassium 3.8 mmol/L (3.5-5.1); Protein, Total 6.9 g/dL (6.4-8.2); Sodium Level 141 mmol/L (136-145); Triglycerides 98 mg/dL; Uric Acid 5.4 mg/dL (3.5-7.2); Very Low Density Lipoprotein 20 mg/dL (5-40)
[2023-09-27 13:14] LABS: AST(SGOT) 25 U/L (15-37); Alanine Aminotransfer ALT/SGPT 21 U/L (16-61); Albumin, Serum 3.2 g/dL (3.2-5.0); Alkaline Phosphatase 110 U/L (45-117); Bilirubin, Direct 0.56 mg/dL (0.00-0.30); Cholesterol 127 mg/dL (200); Globulin 3.7 g/dL (2.2-4.2); High Density Lipoprotein 38 mg/dL; Protein, Total 6.9 g/dL (6.4-8.2); Triglycerides 97 mg/dL; Very Low Density Lipoprotein 19 mg/dL (5-40)
[2023-09-27 14:04] LABS: Hemoglobin A1c 5.6 % (3.8-5.6)
== END 2023-09-27 18:00 | disposition home or self-care (01) ==
LOC: MTLAB 10:45
PROVIDERS: Family Medicine; Nurse Practitioner Family; Family Provider Family Medicine; PCP Family Medicine; Referring Provider Internal Medicine Cardiovascular Disease; Visit Provider Internal Medicine Cardiovascular Disease
DX: I48.20 Chronic atrial fibrillation, unspecified (principal); Z79.01 Long term (current) use of anticoagulants; E78.00 Pure hypercholesterolemia, unspecified; R73.09 Other abnormal glucose; M10.9 Gout, unspecified; K21.9 Gastro-esophageal reflux disease without esophagitis; D69.6 Thrombocytopenia, unspecified
CPT/HCPCS: 36415; 80053; 80061; 80076; 82306; 82607; 83036; 83735; 84550; 85025; 85610

== ENCOUNTER 2023-10-30 11:22 | Outpatient (RCR) | payer MEDICARE, OTHER, SELFPAY ==
[2023-10-10 23:54] VITALS: BMI 28.8
[2023-10-30 15:35] LABS: International Normalized Ratio 2.2; Prothrombin Time (Protime)PT. 24.7 SECONDS (11.7-14.9)
== END 2023-11-08 18:00 | disposition home or self-care (01) ==
LOC: MTLAB 11:22
PROVIDERS: Family Provider Family Medicine; PCP Family Medicine; Referring Provider Internal Medicine Cardiovascular Disease; Visit Provider Internal Medicine Cardiovascular Disease
DX: I48.20 Chronic atrial fibrillation, unspecified (principal); Z79.01 Long term (current) use of anticoagulants
CPT/HCPCS: 36415; 85610

== ENCOUNTER 2023-12-03 11:23 | Outpatient (RCR) | payer MEDICARE, OTHER, SELFPAY ==
[2023-11-09 02:27] VITALS: BMI 28.8
[2023-12-03 15:49] LABS: International Normalized Ratio 2.4; Prothrombin Time (Protime)PT. 25.6 SECONDS (11.7-14.9)
== END 2023-12-09 02:13 | disposition home or self-care (01) ==
LOC: MTLAB 11:23
PROVIDERS: Family Provider Family Medicine; PCP Family Medicine; Referring Provider Nurse Practitioner Family; Visit Provider Nurse Practitioner Family
DX: Z79.01 Long term (current) use of anticoagulants
CPT/HCPCS: 36415; 85610

== ENCOUNTER 2023-12-26 13:51 | Outpatient (RCR) | payer MEDICARE, OTHER, SELFPAY ==
[2023-12-09 02:13] VITALS: BMI 28.8
[2023-12-26 15:49] LABS: International Normalized Ratio 2.6; Prothrombin Time (Protime)PT. 27.3 SECONDS (11.7-14.9)
== END 2024-01-08 22:32 | disposition home or self-care (01) ==
LOC: MTLAB 13:51
PROVIDERS: Family Provider Family Medicine; PCP Family Medicine; Referring Provider Nurse Practitioner Family; Visit Provider Nurse Practitioner Family
DX: Z79.01 Long term (current) use of anticoagulants
CPT/HCPCS: 36415; 85610

== ENCOUNTER 2024-02-14 10:36 | Outpatient (RCR) | payer MEDICARE, OTHER, SELFPAY ==
[2024-01-08 22:32] VITALS: BMI 28.8
[2024-02-14 12:30] LABS: International Normalized Ratio 2.9; Prothrombin Time (Protime)PT. 30.3 SECONDS (11.7-14.9)
== END 2024-02-14 18:00 | disposition home or self-care (01) ==
LOC: MTLAB 10:36
PROVIDERS: Family Provider Family Medicine; PCP Family Medicine; Referring Provider Nurse Practitioner Family; Visit Provider Nurse Practitioner Family
DX: Z79.01 Long term (current) use of anticoagulants
CPT/HCPCS: 36415; 85610

== ENCOUNTER 2024-03-25 10:59 | Outpatient (RCR) | payer MEDICARE, OTHER, SELFPAY ==
[2024-03-10 04:40] VITALS: BMI 28.8
[2024-03-25 15:30] LABS: International Normalized Ratio 2.5; Prothrombin Time (Protime)PT. 26.6 SECONDS (11.7-14.9)
[2024-03-25 16:03] LABS: AST(SGOT) 27 U/L (15-37); Alanine Aminotransfer ALT/SGPT 28 U/L (16-61); Albumin, Serum 3.4 g/dL (3.2-5.0); Alkaline Phosphatase 109 U/L (45-117); Bilirubin, Direct 0.39 mg/dL (0.00-0.30); Cholesterol 127 mg/dL (200); Globulin 3.9 g/dL (2.2-4.2); High Density Lipoprotein 39 mg/dL; Protein, Total 7.3 g/dL (6.4-8.2); Triglycerides 122 mg/dL; Very Low Density Lipoprotein 24 mg/dL (5-40)
== END 2024-04-09 18:00 | disposition home or self-care (01) ==
LOC: MTLAB 10:59
PROVIDERS: Family Provider Family Medicine; PCP Family Medicine; Referring Provider Nurse Practitioner Family; Visit Provider Nurse Practitioner Family
DX: Z79.01 Long term (current) use of anticoagulants; E78.00 Pure hypercholesterolemia, unspecified
CPT/HCPCS: 36415; 80061; 80076; 85610

== ENCOUNTER → 2024-04-03 | Outpatient (CLI) | payer MEDICARE, OTHER, SELFPAY ==
--- NOTE | 2024-04-03 10:43 | RAD_ITS ---
STUDY: X-RAY - LUMBOSACRAL SPINE REASON FOR EXAM: Male, 84 years old. PAIN TECHNIQUE: 7 view(s) of the lumbosacral spine were obtained. COMPARISON: 01/04/2022 FINDINGS: Normal lumbar lordosis. Mild levoscoliosis centered at L2/L3. 5 mm of anterolisthesis of L4 on L5 which is unchanged on the flexion and extension views. There is multilevel endplate spondylosis of the lumbar vertebrae. There is multi-level degenerative disc disease with multi-level disc space narrowing. There is multilevel facet hypertrophy. Normal bilateral sacral ala, sacroiliac joints, and visualized sacrum. Normal visualized soft tissue structures. RAD/L/S Spine w Bend Min 6 Vw IMPRESSION: Mild levoscoliosis with degenerative disc disease including 5 mm of anterolisthesis of L4 on L5 which is unchanged on the flexion and extension views. Electronically Signed: Finesse Santos MD at 9:09 EDT ,
== END | disposition home or self-care (01) ==
PROVIDERS: PCP Family Medicine; Referring Provider Anesthesiology Pain Medicine; Visit Provider Anesthesiology Pain Medicine
DX: M51.37 Other intervertebral disc degeneration, lumbosacral region (principal)
CPT/HCPCS: 72114; 72120

== ENCOUNTER 2024-04-29 09:56 | Outpatient (RCR) | payer MEDICARE, OTHER, SELFPAY ==
[2024-04-09 23:35] VITALS: BMI 28.8
[2024-04-29 12:19] LABS: International Normalized Ratio 1.4; Prothrombin Time (Protime)PT. 17.1 SECONDS (11.7-14.9)
== END 2024-04-29 18:00 | disposition home or self-care (01) ==
LOC: MTLAB 09:56
PROVIDERS: Family Provider Family Medicine; PCP Family Medicine; Referring Provider Nurse Practitioner Family; Visit Provider Nurse Practitioner Family
DX: Z79.01 Long term (current) use of anticoagulants
CPT/HCPCS: 36415; 85610

== ENCOUNTER 2024-05-15 10:58 | Outpatient (RCR) | payer MEDICARE, OTHER, SELFPAY ==
[2024-05-10 21:51] VITALS: BMI 28.8
[2024-05-15 12:23] LABS: International Normalized Ratio 2.5; Prothrombin Time (Protime)PT. 27.1 SECONDS (11.7-14.9)
== END 2024-05-15 18:00 | disposition home or self-care (01) ==
LOC: MTLAB 10:58
PROVIDERS: Family Provider Family Medicine; PCP Family Medicine; Referring Provider Nurse Practitioner Family; Visit Provider Nurse Practitioner Family
DX: Z79.01 Long term (current) use of anticoagulants
CPT/HCPCS: 36415; 85610

== ENCOUNTER 2024-06-24 15:56 | Outpatient (RCR) | payer MEDICARE, OTHER, SELFPAY ==
[2024-06-10 05:02] VITALS: BMI 28.8
[2024-06-24 17:50] LABS: International Normalized Ratio 2.4; Prothrombin Time (Protime)PT. 26.1 SECONDS (11.7-14.9)
== END 2024-06-24 18:00 | disposition home or self-care (01) ==
LOC: MTLAB 15:56
PROVIDERS: Family Provider Family Medicine; PCP Family Medicine; Referring Provider Nurse Practitioner Family; Visit Provider Nurse Practitioner Family
DX: Z79.01 Long term (current) use of anticoagulants
CPT/HCPCS: 36415; 85610

== ENCOUNTER 2024-07-29 09:51 | Outpatient (RCR) | payer MEDICARE, OTHER, SELFPAY ==
[2024-07-10 21:08] VITALS: BMI 28.8
[2024-07-29 12:18] LABS: International Normalized Ratio 1.3; Prothrombin Time (Protime)PT. 16.5 SECONDS (11.7-14.9)
== END 2024-08-09 18:00 | disposition home or self-care (01) ==
LOC: MTLAB 09:51
PROVIDERS: Family Provider Family Medicine; PCP Family Medicine; Referring Provider Nurse Practitioner Family; Visit Provider Nurse Practitioner Family
DX: Z79.01 Long term (current) use of anticoagulants
CPT/HCPCS: 36415; 85610

== ENCOUNTER → 2024-08-04 | Outpatient (CLI) | payer MEDICARE, OTHER, SELFPAY ==
[2024-08-04 18:33] LABS: CRP < 2.90 mg/L (0.0-3.0)
[2024-08-06 16:10] LABS: Endomysial Antibody IgA Negative (Negative); Immunoglobulin A 318 mg/dL (61-437); t-Transglutaminase IgA <2 U/mL (0-3)
== END | disposition home or self-care (01) ==
PROVIDERS: PCP Family Medicine; Referring Provider Internal Medicine Gastroenterology; Visit Provider Internal Medicine Gastroenterology
DX: R19.7 Diarrhea, unspecified (principal)
CPT/HCPCS: 36415; 82784; 83516; 86140; 86255

== ENCOUNTER → 2024-08-08 | Outpatient (CLI) | payer MEDICARE, OTHER, SELFPAY ==
[2024-08-12 19:07] LABS: Calprotectin, Stool 240 ug/g (0-120); Fats, Neutral Normal (.); Fats, Total Normal (.)
== END | disposition home or self-care (01) ==
LOC: MTLAB 12:48
PROVIDERS: PCP Family Medicine; Referring Provider Internal Medicine Gastroenterology; Visit Provider Internal Medicine Gastroenterology
DX: R19.7 Diarrhea, unspecified (principal)
CPT/HCPCS: 82705; 83993

== ENCOUNTER 2024-10-20 14:43 | Outpatient (RCR) | payer MEDICARE, OTHER, SELFPAY ==
[2024-08-10 02:45] VITALS: BMI 28.8
[2024-10-20 18:21] LABS: International Normalized Ratio 2.2; Prothrombin Time (Protime)PT. 24.5 SECONDS (11.7-14.9)
== END 2024-11-07 18:00 | disposition home or self-care (01) ==
LOC: MTLAB 14:43
PROVIDERS: Family Provider Family Medicine; PCP Family Medicine; Referring Provider Nurse Practitioner Family; Visit Provider Nurse Practitioner Family
DX: I48.20 Chronic atrial fibrillation, unspecified (principal); Z79.01 Long term (current) use of anticoagulants
CPT/HCPCS: 36415; 85610

== ENCOUNTER 2024-11-13 09:49 | Outpatient (RCR) | payer MEDICARE, OTHER, SELFPAY ==
[2024-11-08 08:21] VITALS: BMI 28.8
[2024-11-13 13:13] LABS: AST(SGOT) 28 U/L (<=37); Alanine Aminotransfer ALT/SGPT 18 U/L (<=46); Albumin, Serum 3.9 g/dL (3.4-4.8); Alkaline Phosphatase 101 U/L (40-129); Bilirubin, Direct 0.49 mg/dL (0.00-0.30); Cholesterol 141 mg/dL (<=200); Globulin 3.2 g/dL (2.2-4.2); High Density Lipoprotein 40 mg/dL; Low Density Lipoprotein Calc. 78 mg/dL; Protein, Total 7.1 g/dL (5.9-8.4); Triglycerides 116 mg/dL; Very Low Density Lipoprotein 23 mg/dL (5-40); cholesterol:hdl ratio screen 3.52
== END 2024-11-13 18:00 | disposition home or self-care (01) ==
LOC: MTLAB 09:49
PROVIDERS: Family Provider Family Medicine; PCP Family Medicine; Referring Provider Nurse Practitioner Family; Visit Provider Nurse Practitioner Family
DX: I48.20 Chronic atrial fibrillation, unspecified (principal); Z79.01 Long term (current) use of anticoagulants; E78.00 Pure hypercholesterolemia, unspecified
CPT/HCPCS: 36415; 80061; 80076; 85610

== ENCOUNTER 2024-12-29 14:17 | Outpatient (RCR) | payer MEDICARE, OTHER, SELFPAY ==
[2024-12-08 23:35] VITALS: BMI 28.8
--- NOTE | 2024-12-29 14:21 | RAD_ITS ---
PROCEDURE: KNEE 4 OR MORE VIEWS 12/29/2024 REASON FOR EXAM: PAIN TECHNIQUE: 2 view(s) of the right knee COMPARISON: None FINDINGS: Bones: No fracture. No suspicious bone lesion. Joints: Moderate degree of joint space narrowing involving the patellofemoral joint. Mild degree of joint space narrowing involving the medial and lateral compartments of the knee joint. Effusion: No effusion. Soft tissues: Soft tissues are unremarkable. Other: RAD/Knee 4 or More Views IMPRESSION: DEGENERATIVE OSTEOARTHROSIS. NO ACUTE FINDINGS. Reading Location: [place] [id number]
--- NOTE | 2024-12-29 14:25 | RAD_ITS ---
PROCEDURE: KNEE 4 OR MORE VIEWS 12/29/2024 REASON FOR EXAM: PAIN, INJURY TECHNIQUE: 4 view(s) of the left knee COMPARISON: None FINDINGS: Bones: No fracture. No suspicious bone lesion. Joints: Marked degree of joint space narrowing involving the lateral compartment of the knee joint as well as the patellofemoral joint. Moderate osteoarthritis of the medial compartment of the knee joint. Effusion: Small joint effusion. Soft tissues: Soft tissues are unremarkable. Other: RAD/Knee 4 or More Views IMPRESSION: DEGENERATIVE OSTEOARTHROSIS. NO ACUTE FINDINGS. Reading Location: [place] [id number]
[2024-12-29 19:28] LABS: International Normalized Ratio 2.3
== END 2025-01-07 18:00 | disposition home or self-care (01) ==
LOC: MTLAB 14:17
PROVIDERS: Family Provider Family Medicine; PCP Family Medicine; Referring Provider Nurse Practitioner Family; Visit Provider Nurse Practitioner Family
DX: I48.91 Unspecified atrial fibrillation (principal); M25.561 Pain in right knee
CPT/HCPCS: 36415; 73564; 85610

== ENCOUNTER → 2024-12-30 | Outpatient (CLI) | payer MEDICARE, OTHER, SELFPAY ==
--- NOTE | 2024-12-30 09:49 | ECHOCS_ITS ---
Reason For Study Reason For Study: CHF Procedure This was a 2D Doppler, Color Flow transthoracic echocardiogram. The study was technically difficult. Contrast injection was performed. Exam performed in department. Left Ventricle Normal LV size. The left ventricular ejection fraction is 45 %. Paced septal motion. There is mild global hypokinesis of the left ventricle. Right Ventricle Normal RV size. ICD or pacer leads identified within the right ventricle. Normal systolic function. Atria The left atrium is severely enlarged. The right atrium is moderately enlarged. Mitral Valve Normal mitral valve. Mild (1+) eccentric mitral valve insufficiency. Tricuspid Valve Normal tricuspid valve. Mild (1+) tricuspid valve insufficiency. Pulmonary artery systolic pressure is 40 mmHg. Aortic Valve Trisinus/trileaflet aortic valve. Mild focal aortic valve calcification. Mild (1+) aortic valve insufficiency. Pulmonic Valve Normal pulmonic valve. Pericardium/Pleural No pericardial effusion. Medication 22 gauge I.V. with prn adaptor inserted into left arm. Diluted definity 2ml given slow IV push to enhance endocardial definition. MMode/2D Measurements & Calculations LVIDd: 5.2 cm IVSd: 1.1 cm LVOT diam: 2.1 cm LVIDs: 3.9 cm LVPWd: 1.1 cm LVOT area: 3.6 cm2 RVDd: 4.3 cm FS: 25.2 % Ao root diam: 3.8 cm LAV(MOD-bp): 148.1 ml LVAd ap4: 33.1 cm2 LAV(MOD-bp) Indexed: 67.0 ml/m2 LVLd ap4: 7.5 cm LAV(MOD-sp2): 149.7 ml EDV(MOD-sp4): 115.0 ml LAV(MOD-sp4): 146.4 ml EDV(sp4-el): 123.8 ml LVAs ap4: 23.1 cm2 LVLs ap4: 6.7 cm ESV(MOD-sp4): 63.8 ml ESV(sp4-el): 68.1 ml EF(MOD-sp4): 44.6 % EF(sp4-el): 45.0 % SV(MOD-sp4): 51.3 ml SV(sp4-el): 55.8 ml LA A4 area: 38.1 cm2 SI(MOD-sp4): 23.2 ml/m2 LA dimension(2D): 6.1 cm RA A4 area: 28.7 cm2 Doppler Measurements & Calculations MV E max ney: 79.5 cm/sec MV V2 max: 79.6 cm/sec MV P1/2t max ney: 77.6 cm/sec MV max P.5 mmHg MV P1/2t: 85.7 msec MV V2 mean: 45.4 cm/sec MV mean P.0 mmHg MV dec slope: 265.3 cm/sec2 MV V2 VTI: 20.3 cm MVA(P1/2t): 2.6 cm2 MVA(VTI): 3.2 cm2 Ao V2 max: 189.4 cm/sec AI max ney: 469.7 cm/sec LV V1 max: 88.4 cm/sec Ao max P.4 mmHg AI max P.3 mmHg LV V1 max P.1 mmHg Ao V2 mean: 136.7 cm/sec AI dec slope: 260.4 cm/sec2 LV V1 mean P.8 mmHg Ao mean P.4 mmHg AI P1/2t: 528.2 msec LV V1 mean: 63.8 cm/sec Ao V2 VTI: 41.9 cm LV V1 VTI: 18.2 cm AV (velocity ratio): 0.43 ARTURO(I,D): 1.5 cm2 ARTURO(V,D): 1.7 cm2 MR max ney: 495.2 cm/sec SV(LVOT): 65.0 ml TR max ney: 299.5 cm/sec MR max P.1 mmHg TR max P.9 mmHg MR mean ney: 389.3 cm/sec MR mean P.2 mmHg MR VTI: 173.0 cm ECHO/Echo Complete W/ Contrast Interpretation Summary Normal LV size. The left ventricular ejection fraction is 45 %. The left atrium is severely enlarged. The right atrium is moderately enlarged. Paced septal motion. Contrast injection was performed. Ordering Physician: Karsten Sal Referring Physician: Sean Jolly Performed By: Rakan Peoples RCS
== END | disposition home or self-care (01) ==
LOC: CVS 09:47
PROVIDERS: PCP Family Medicine; Referring Provider Nurse Practitioner Family; Visit Provider Nurse Practitioner Family
DX: I42.8 Other cardiomyopathies (principal)
CPT/HCPCS: 93306; Q9957; A4216; C8929

== ENCOUNTER → 2025-01-07 | Outpatient (CLI) | payer MEDICARE, OTHER, SELFPAY ==
--- NOTE | 2025-01-07 10:25 | RAD_ITS ---
PROCEDURE: SHOULDER MIN 2 VIEWS 01/07/2025 REASON FOR EXAM: RIGHT SHOULDER PAIN TECHNIQUE: Four views of the right shoulder. COMPARISON: None FINDINGS: Diffuse osteopenia of the right shoulder osseous structures are noted. There are no fractures or dislocations. Very mild arthritic changes are noted involving the acromioclavicular joint and glenohumeral joint. Visualized right ribs are clear. The visualized right lung is clear. Soft tissues are grossly unremarkable. RAD/Shoulder min 2 Views IMPRESSION: Diffuse osteopenia of the right shoulder osseous structures are noted. There are no fractures or dislocations. Very mild arthritic changes are noted involving the acromioclavicular joint and glenohumeral joint. Reading Location: [id number]
--- NOTE | 2025-01-07 10:26 | RAD_ITS ---
PROCEDURE: HAND MIN 3 VIEWS 01/07/2025 REASON FOR EXAM: HAND PAIN, FALL IN JUNE TECHNIQUE: 3 view(s) of the right hand FINDINGS: Bones: No acute fracture or dislocation. Joints: Normal alignment. Mild degenerative changes. Soft tissues: Soft tissues are unremarkable. Other: RAD/Hand Min 3 Views IMPRESSION: DEGENERATIVE OSTEOARTHROSIS. NO ACUTE FINDINGS. Reading Location: [id number]
== END | disposition home or self-care (01) ==
LOC: MTRAD 10:25
PROVIDERS: PCP Family Medicine; Referring Provider Family Medicine; Visit Provider Family Medicine
DX: S69.91XD Unspecified injury of right wrist, hand and finger(s), subsequent encounter (principal); W19.XXXD Unspecified fall, subsequent encounter; M25.511 Pain in right shoulder
CPT/HCPCS: 73030; 73130

== ENCOUNTER 2025-01-28 11:29 | Outpatient (RCR) | payer MEDICARE, OTHER, SELFPAY ==
[2025-01-08 00:57] VITALS: BMI 28.8
[2025-01-28 13:30] LABS: International Normalized Ratio 2.3
== END 2025-01-28 18:00 | disposition home or self-care (01) ==
LOC: MTLAB 11:29
PROVIDERS: Family Provider Family Medicine; PCP Family Medicine; Referring Provider Nurse Practitioner Family; Visit Provider Nurse Practitioner Family
DX: I48.20 Chronic atrial fibrillation, unspecified (principal); Z79.01 Long term (current) use of anticoagulants
CPT/HCPCS: 36415; 85610

== ENCOUNTER 2025-03-02 08:26 | Outpatient (RCR) | payer MEDICARE, OTHER, SELFPAY ==
[2025-02-08 21:20] VITALS: BMI 28.8
[2025-02-10 18:24] LABS: International Normalized Ratio 1.2; Prothrombin Time (Protime)PT. 15.5 SECONDS (11.7-14.9)
[2025-03-02 10:27] LABS: International Normalized Ratio 2.3; Prothrombin Time (Protime)PT. 25.8 SECONDS (11.7-14.9)
== END 2025-03-02 18:00 | disposition home or self-care (01) ==
LOC: MTLAB 08:26
PROVIDERS: Family Provider Family Medicine; PCP Family Medicine; Referring Provider Nurse Practitioner Family; Visit Provider Nurse Practitioner Family
DX: I48.20 Chronic atrial fibrillation, unspecified (principal); Z79.01 Long term (current) use of anticoagulants
CPT/HCPCS: 36415; 85610

== ENCOUNTER → 2025-03-05 | Outpatient (CLI) | payer MEDICARE, OTHER, SELFPAY ==
[2025-03-05 17:44] LABS: Absolute Neutrophil Count 5.7 X10^3/uL (2.0-7.7); Basophil# 0.06 X10^3/uL; Basophil% 0.8 % (0-1); Eosinophil# 0.25 X10^3/uL; Eosinophils% 3.2 % (0-5); Hematocrit 45.3 % (40-54); Hemoglobin 15.1 g/dL (13.0-16.5); Lymphocyte % 12.6 % (19-41); Mean Corp Hgb Conc 33.3 g/dL (32-36); Mean Corpuscular Hgb 33.2 pg (27.0-32.0); Mean Corpuscular Volume 99.6 fL (80-94); Mean Platelet Vol. 10.2 fl (6.2-12.0); Monocyte# 0.92 X10^3/uL; Monocyte% 11.6 % (0-10); NRBC Flagged by Analyzer 0 % (0-5); Neutrophil # 5.66 X10^3/uL (2.7-7.7); Neutrophil % 71.3 % (47-70); Platelet Count 163 K/mm3 (150-450); RBC Distribution Width CV 13.5 % (11.6-14.6); RBC Distribution Width SD 49.5 fl (35.1-43.9); Red Blood Count 4.55 M/mm3 (4.6-6.2); White Blood Count 7.9 K/mm3 (4.4-11.0)
[2025-03-05 18:32] LABS: ALB/GLOB Ratio 1.2 RATIO (0.9-2.4); AST(SGOT) 31 U/L (<=37); Alanine Aminotransfer ALT/SGPT 30 U/L (<=46); Albumin, Serum 3.8 g/dL (3.4-4.8); Alkaline Phosphatase 124 U/L (40-129); Anion Gap 12 (5-15); BUN 24 mg/dL (4-19); BUN/Creat Ratio 18.9 RATIO (10-20); Bilirubin, Direct 0.44 mg/dL (0.00-0.30); Calcium,Total 9.6 mg/dL (7.6-11.0); Carbon Dioxide 25.8 mmol/L (21.0-32.0); Chloride 103 mmol/L (98-108); Creatinine, Serum 1.27 mg/dL (0.70-1.20); EST Glomerular Filtration Rate 55 (>60); Globulin 3.2 g/dL (2.2-4.2); Glucose 95 mg/dL (70-99); PSA,Total - Annual Screen 0.96 ng/mL (0.02-4.00); Potassium 4.8 mmol/L (3.3-5.1); Sodium Level 140 mmol/L (133-145); Total Bilirubin 1.23 mg/dL (0.00-1.30)
[2025-03-05 19:14] LABS: Cholesterol 157 mg/dL (<=200); High Density Lipoprotein 37 mg/dL; Low Density Lipoprotein Calc. 87 mg/dL; Triglycerides 164 mg/dL; Very Low Density Lipoprotein 33 mg/dL (5-40)
== END | disposition home or self-care (01) ==
LOC: MTLAB 14:12
PROVIDERS: PCP Family Medicine; Referring Provider Family Medicine; Visit Provider Family Medicine
DX: R42 Dizziness and giddiness (principal); Z12.5 Encounter for screening for malignant neoplasm of prostate; Z79.899 Other long term (current) drug therapy
CPT/HCPCS: 36415; 80053; 80061; 82248; 84153; 84443; 85025; G0103

== ENCOUNTER 2025-04-07 08:54 | Outpatient (RCR) | payer MEDICARE, OTHER, SELFPAY ==
[2025-04-07 10:09] LABS: Prothrombin Time (Protime)PT. 15.3 SECONDS (11.7-14.9)
== END 2025-04-09 18:00 | disposition home or self-care (01) ==
LOC: MTLAB 08:54
PROVIDERS: Family Provider Family Medicine; PCP Family Medicine; Referring Provider Nurse Practitioner Family; Visit Provider Nurse Practitioner Family
DX: I48.20 Chronic atrial fibrillation, unspecified (principal); Z79.01 Long term (current) use of anticoagulants
CPT/HCPCS: 36415; 85610

== ENCOUNTER 2025-04-23 14:23 | Outpatient (RCR) | payer MEDICARE, OTHER, SELFPAY ==
[2025-04-23 16:25] LABS: Prothrombin Time (Protime)PT. 26.4 SECONDS (11.7-14.9)
== END 2025-04-23 18:00 | disposition home or self-care (01) ==
LOC: MTLAB 14:23
PROVIDERS: Family Provider Family Medicine; PCP Family Medicine; Referring Provider Nurse Practitioner Family; Visit Provider Nurse Practitioner Family
DX: I48.20 Chronic atrial fibrillation, unspecified (principal); Z79.01 Long term (current) use of anticoagulants
CPT/HCPCS: 36415; 85610

== ENCOUNTER 2025-06-01 10:27 | Outpatient (RCR) | payer MEDICARE, OTHER, SELFPAY ==
[2025-06-01 12:18] LABS: Prothrombin Time (Protime)PT. 33.6 SECONDS (11.7-14.9)
== END 2025-06-09 18:00 | disposition home or self-care (01) ==
LOC: MTLAB 10:27
PROVIDERS: Family Provider Family Medicine; PCP Family Medicine; Referring Provider Nurse Practitioner Family; Visit Provider Nurse Practitioner Family
DX: I48.20 Chronic atrial fibrillation, unspecified (principal); Z79.01 Long term (current) use of anticoagulants
CPT/HCPCS: 36415; 85610

== ENCOUNTER 2025-07-02 10:49 | Outpatient (RCR) | payer MEDICARE, OTHER, SELFPAY ==
[2025-06-15 12:24] LABS: Prothrombin Time (Protime)PT. 33.1 SECONDS (11.7-14.9)
[2025-07-02 12:09] LABS: Prothrombin Time (Protime)PT. 27.4 SECONDS (11.7-14.9)
== END 2025-07-02 18:00 | disposition home or self-care (01) ==
LOC: MTLAB 10:49
PROVIDERS: Family Provider Family Medicine; PCP Family Medicine; Referring Provider Nurse Practitioner Family; Visit Provider Nurse Practitioner Family
DX: I48.20 Chronic atrial fibrillation, unspecified (principal); Z79.01 Long term (current) use of anticoagulants
CPT/HCPCS: 36415; 85610

== ENCOUNTER 2025-08-25 13:30 | Outpatient (RCR) | payer MEDICARE, OTHER, SELFPAY ==
[2025-08-25 15:26] LABS: Prothrombin Time (Protime)PT. 24.8 SECONDS (11.7-14.9)
== END 2025-08-25 18:00 | disposition home or self-care (01) ==
LOC: MTLAB 13:30
PROVIDERS: Family Provider Family Medicine; PCP Family Medicine; Referring Provider Nurse Practitioner Family; Visit Provider Nurse Practitioner Family
DX: I48.20 Chronic atrial fibrillation, unspecified (principal); Z79.01 Long term (current) use of anticoagulants
CPT/HCPCS: 36415; 85610